=== PATIENT | female | born 1995 | race Caucasian/White ===

== ENCOUNTER 2017-02-06 08:54 | Emergency (ER) | payer BC, MEDICAID ==
[2017-02-06 09:28] VITALS: BP 120/68
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
== END 2017-02-06 10:50 | disposition home or self-care (01) ==
LOC: UCCORT 08:54
DX: M54.5 Low back pain (principal); Z88.0 Allergy status to penicillin; G43.909 Migraine, unspecified, not intractable, without status migrainosus
CPT/HCPCS: 99212; G0463

== ENCOUNTER 2017-04-12 07:20 | Emergency (ER) | payer BC ==
[2017-04-12] MEDS ORDERED: predniSONE TAB* 20 MG PO ONE (09:00)
[2017-04-12] MEDS ORDERED: Lidocaine PATCH 5%* 1 PATCH TRANSDERM SCH (09:00)
[2017-04-12] MEDS ORDERED: traMADol TAB* 50 MG PO ONE (09:00)
[2017-04-12 09:07] LABS: Manual Entry Verification AS; UR Preg Internal Control QC Line Present; UR Preg Kit Lot# 7010135
[2017-04-12 09:10] LABS: Urine Bilirubin Negative (Negative); Urine Glucose Negative (Negative); Urine Nitrite Negative (Negative)
[2017-04-12 11:13] VITALS: BP 110/59
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
[2017-04-12] MEDS ORDERED: Lidocaine Patch REMOVE* 1 NOTE MISC SCH (21:00)
== END 2017-04-12 11:12 | disposition home or self-care (01) ==
LOC: ED 07:20
DX: M51.26 Other intervertebral disc displacement, lumbar region (principal); M54.30 Sciatica, unspecified side; M54.5 Low back pain; R11.0 Nausea; R19.7 Diarrhea, unspecified
CPT/HCPCS: 81003; 81025; 99282; A9270-GY; J7512

== ENCOUNTER 2017-11-27 20:53 | Emergency (ER) | payer BC ==
[2017-11-27 21:09] VITALS: BP 141/96
[2017-11-27] MEDS ORDERED: NS 0.9% 1000 ML* 1,000 ML IV ONE (21:34)
[2017-11-27] MEDS ORDERED: Ondansetron INJ* 2 MG/ML VIAL IV ONE (21:35)
--- NOTE | 2017-11-27 21:44 | UC ---
Abdominal Pain Female HPI - HPI Summary HPI Summary: Acute onset on diffuse abd pain, nausea, vomiting diarrhea, tachycardia, near syncopal, unsure when she voided last--no recent travel antibiotics or illness exposures - History of Current Complaint Chief Complaint: UCAbdominalPain Stated Complaint: NAUSEA, AND DIARRHEA Time Seen by Provider: 11/27/17 21:25 Hx Obtained From: Patient Hx Last Menstrual Period: 11/27/17 ?: No Onset/Duration: Sudden Onset, Lasting Hours, Still Present Timing: Constant Severity Initially: Moderate Severity Currently: Moderate Pain Intensity: 0 Location: Diffuse Radiates: No Character: Cramping Aggravating Factor(s): Movement Alleviating Factor(s): Nothing Associated Signs and Symptoms: Positive: Decreased Appetite, Nausea Allergies/Adverse Reactions: Allergies Allergy/AdvReac Type Severity Reaction Status Date / Time MS Penicillins [PCN] Allergy Coughing Verified 11/27/17 21:09 Home Medications: Home Medications Loperamide HCl [Imodium A-D] 11/27/17 [History] PMH/Surg Hx/FS Hx/Imm Hx Previously Healthy: Yes - Surgical History Surgical History: Yes Surgery Procedure, Year, and Place: LAPROSCOPY ENDOMETRIOS 10/03/2015 - Family History Known Family History: Positive: Hypertension Family History: FHx of CVA - Father at 31 y/o - Social History Occupation: Employed Full-time Lives: With Family Alcohol Use: None Substance Use Type: Prescribed Substance Use Comment - Amount & Last Used: meloxicam Smoking Status (MU): Never Smoked Tobacco Have You Smoked in the Last Year: Yes - SOME EXPOSURE, MEMBER SMOKES OUTSIDE - Immunization History Most Recent Influenza Vaccination: June 2016 Most Recent Tetanus Shot: 05/27/16 Most Recent Pneumonia Vaccination: n/a Vaccination Up to Date: Yes Review of Systems Constitutional: Chills Skin: Negative Eyes: Negative ENT: Negative Respiratory: Negative Cardiovascular: Negative Gastrointestinal: Abdominal Pain, Vomiting, Diarrhea, Nausea Genitourinary: Negative, Other - decreased urine output Motor: Negative Neurovascular: Negative Musculoskeletal: Negative Neurological: Negative Psychological: Negative Is Patient Immunocompromised?: No All Other Systems Reviewed And Are Negative: Yes Physical Exam Triage Information Reviewed: Yes Appearance: Well-Nourished, Ill-Appearing, Pain Distress Vital Signs: Initial Vital Signs Temp 98.4 F 11/27/17 21:07 Pulse 140 11/27/17 21:07 Resp 20 11/27/17 21:07 BP 141/96 11/27/17 21:07 Pulse Ox 100 11/27/17 21:07 Vital Signs Reviewed: Yes Eye Exam: Normal Eyes: Positive: Conjunctiva Clear ENT Exam: Normal ENT: Positive: Normal ENT inspection, Hearing grossly normal, Pharynx normal. Negative: Nasal congestion, Nasal drainage, Trismus, Muffled voice, Hoarse voice , Dental tenderness, Sinus tenderness Dental Exam: Normal Neck exam: Normal Neck: Positive: Supple, Nontender, No Lymphadenopathy Respiratory Exam: Normal Respiratory: Positive: Chest non-tender, Lungs clear, Normal breath sounds, No respiratory distress, No accessory muscle use Cardiovascular Exam: Normal Cardiovascular: Positive: No Murmur, Pulses Normal, Brisk Capillary Refill, Tachycardia Abdominal Exam: Normal Abdomen Description: Positive: No Organomegaly, Guarding, Peritoneal Signs. Negative: CVA Tenderness (R), CVA Tenderness (L), Distended, Hernia @, Hepatomegaly, McBurney's Point Tenderness, Pulsatile Mass, Splenomegaly Bowel Sounds: Positive: Present Musculoskeletal Exam: Normal Musculoskeletal: Positive: Strength Intact, ROM Intact, No Edema Neurological Exam: Normal Neurological: Positive: Alert, Muscle Tone Normal Psychological Exam: Normal Skin Exam: Normal Abd Pain Female Course/Dx - Course Course Of Treatment: ivf, zofran, npo transfer to ed by EMS - Differential Dx/Diagnosis Provider Diagnoses: Acute nausea, vomiting and diarrhea - Physician Notification/Consults Discussed Care of Patient With: Siobhan Hendrickson Time Discussed With Above Provider: 21:35 Instructed by Provider To: Transfer Discharge - Discharge Plan Condition: Good Disposition: TRANS HIGHER LVL OF CARE FAC Referrals: No Primary Care Phys,NOPCP [Primary Care Provider] -
== END 2017-11-27 22:25 | disposition short-term general hospital (02) ==
LOC: UCEAST 20:53
DX: R11.2 Nausea with vomiting, unspecified (principal); R19.7 Diarrhea, unspecified; R10.84 Generalized abdominal pain; R00.0 Tachycardia, unspecified; R55 Syncope and collapse; Z88.0 Allergy status to penicillin; Z77.22 Contact with and (suspected) exposure to environmental tobacco smoke (acute) (chronic)
CPT/HCPCS: 96361; 96374; 99213; G0463; J2405

== ENCOUNTER 2017-11-27 22:43 | Emergency (ER) | payer BC ==
[2017-11-27] MEDS ORDERED: NS 0.9% 1000 ML* 1,000 ML IV ONE (23:06)
[2017-11-27] MEDS ORDERED: Ondansetron INJ* 2 MG/ML VIAL IV ONE (23:59)
[2017-11-28] MEDS ORDERED: Ibuprofen TAB* 800 MG PO ONE (00:20)
[2017-11-28 00:23] LABS: EGFR Non-African American 74.3 (>60)
[2017-11-28 00:26] LABS: ABS Basophils 0 10^3/ul (0-0.2); ABS Eosinophils 0 10^3/ul (0-0.6); ABS Lymphocytes 0.4 10^3/ul (1.0-4.8); ABS Monocytes 0.3 10^3/ul (0-0.8); ABS Neutrophils 9.9 10^3/ul (1.5-7.7); ABS Nucleated RBC 0 10^3/ul; Eosinophil % 0.1 % (0-6); Hematocrit 39 % (35-47); Hemoglobin 13.6 g/dl (12.0-16.0); Lymphocyte % 3.5 % (25-47); Mean Corpuscular HGB Conc 35 g/dl (31-36); Mean Corpuscular Hemoglobin 31 pg (27-31); Mean Corpuscular Volume 88 fL (80-97); Mean Platelet Volume 10 um3 (7.4-10.4); Nucleated Red Blood Cells % 0; Platelet Count 172 10^3/ul (150-450); Red Blood Count 4.46 10^6/ul (4.0-5.4); Red Cell Distribution Width 13 % (10.5-15); White Blood Count 10.6 10^3/ul (3.5-10.8)
[2017-11-28] MEDS ORDERED: Metoclopramide IV* 5 MG/ML 2 ML VIAL IV SLOW PU ONE (01:21)
[2017-11-28] MEDS ORDERED: NS 0.9% 1000 ML* 1,000 ML IV ONE (01:22)
[2017-11-28 03:43] VITALS: BP 101/45
--- NOTE | 2017-11-28 19:58 | ED ---
Earl Rodriguez Tecjoon, scribed for Oriana Lei MD on 11/28/17 at 0253 . Course/Dx - Course Course Of Treatment: Patient will be discharged with a diagnosis of gastroenteritis and a prescription for metoclopramide. Patient is advised to follow up with PCP in 3 days. - Diagnoses Provider Diagnoses: Gastroenteritis The documentation as recorded by the Earl gannon Tecjoon accurately reflects the service I personally performed and the decisions made by Do youssef Abdul, MD.
--- NOTE | 2017-11-30 08:54 | PN ---
Progress Note - Progress Note Date of Service: 11/30/17 Note: Stool culture did not grow anything significant so no further action required.
--- NOTE | 2017-12-04 19:56 | ED ---
Patricia Rodriguez Rebecca, scribed for Stefano Burrows MD on 11/27/17 at 2309 . Abdominal Pain/Female - HPI Summary HPI Summary: Pt is a 22 y/o F BIBA from [facility] who presents to ED c/o abdominal pain. Sx began suddenly today and pain is currently moderate, ranked 6/10. Pain is in the RUQ and LUQ. Sx aggravated and alleviated by nothing. Additionally c/o N/V/D , fever, and chills. Denies dysuria. Reports that nobody at home is sick and that she has not eaten any undercooked or raw food. Denies any chance of as she is currently menstruating. No recent travel. - History of Current Complaint Chief Complaint: EDAbdPain Stated Complaint: DEHYDRATION SENT FROM CC Hx Obtained From: Patient Hx Last Menstrual Period: 11/27/17 Onset/Duration: Sudden Onset, Still Present Severity Currently: Moderate Pain Intensity: 6 Pain Scale Used: 0-10 Numeric Location: Discrete At: RUQ, Discrete At: LUQ Aggravating Factor(s): Nothing Alleviating Factor(s): Nothing Associated Signs and Symptoms: Positive: Fever, Nausea, Vomiting, Diarrhea Allergies/Adverse Reactions: Allergies Allergy/AdvReac Type Severity Reaction Status Date / Time MS Penicillins [PCN] Allergy Coughing Verified 11/27/17 21:09 PMH/Surg Hx/FS Hx/Imm Hx Endocrine/Hematology History: Denies: Hx Diabetes, Hx Thyroid Disease Cardiovascular History: Denies: Hx Hypertension, Hx Pacemaker/ICD Respiratory History: Denies: Hx Asthma, Hx Chronic Obstructive Pulmonary Disease (COPD) GI History: Denies: Hx Ulcer History: Denies: Hx Renal Disease Musculoskeletal History: Reports: Hx Back Problems - disc herniation Sensory History: Denies: Hx Hearing Aid Neurological History: Reports: Hx Migraine Psychiatric History: Denies: Hx Panic Disorder - Surgical History Surgery Procedure, Year, and Place: LAPROSCOPY ENDOMETRIOS 10/03/2015 Infectious Disease History: No Infectious Disease History: Denies: Hx Clostridium Difficile, Hx Hepatitis, Hx Human Immunodeficiency Virus (HIV), Hx of Known/Suspected MRSA, Hx Shingles, Hx Tuberculosis, Hx Known/ Suspected VRE, Hx Known/Suspected VRSA, History Other Infectious Disease, Traveled Outside the [place] in Last 30 Days - Family History Known Family History: Positive: Hypertension Family History: FHx of CVA - Father at 31 y/o - Social History Alcohol Use: Rare Hx Substance Use: Yes Substance Use Type: Reports: None Substance Use Comment - Amount & Last Used: meloxicam Hx Tobacco Use: No Smoking Status (MU): Never Smoked Tobacco Have You Smoked in the Last Year: Yes - SOME EXPOSURE, MEMBER SMOKES OUTSIDE Review of Systems Positive: Fever, Chills Positive: Abdominal Pain, Vomiting, Diarrhea, Nausea Negative: dysuria All Other Systems Reviewed And Are Negative: Yes Physical Exam - Summary Physical Exam Summary: Appearance: Well-appearing, Well-nourished Skin: Warm, Dry, No rash Eyes: Normal, PERRL, EOMI, sclera anicteric ENT: Normal Neck: Supple, nontender Respiratory: Clear to auscultation Cardiovascular: S1, S2, no murmur, no rub, no gallop Abdomen: Soft, nontender, no organomegaly Bowel sounds: Present Musculoskeletal: Normal, Strength/ROM Intact, no edema, pulses symmetrical Neurological: Normal, A&Ox3, cranial nerves II-XII WNL, follows commands, gait not tested, sensation intact to pin and light touch Psychiatric: affect normal, behavior appropriate, dressed appropriately, judgment intact Triage Information Reviewed: Yes Vital Signs On Initial Exam: Initial Vitals Temp Pulse Resp BP Pulse Ox 99.2 F 97 16 114/55 99 11/27/17 22:53 11/27/17 22:53 11/27/17 22:53 11/27/17 22:53 11/27/17 22:53 Vital Signs Reviewed: Yes Diagnostics - Vital Signs Vital Signs Temp Pulse Resp BP Pulse Ox 11/27/17 22:57 95 99 11/27/17 22:55 114/55 11/27/17 22:53 99.2 F 97 16 114/55 99 - Laboratory Lab Statement: Any lab studies that have been ordered have been reviewed, and results considered in the medical decision making process. Abdominal Pain Fem Course/Dx - Course Course Of Treatment: Pt is a 22 y/o F BIBA from [facility] who presents to ED c/o abdominal pain. Sx began suddenly today and pain is currently moderate, ranked 6 /10. Pain is in the RUQ and LUQ. Sx aggravated and alleviated by nothing. Additionally c/o N/V/D, fever, and chills. Denies dysuria. Reports that nobody at home is sick and that she has not eaten any undercooked or raw food. Denies any chance of as she is currently menstruating. No recent travel. Pt will be signed out to Dr. Lei, pending disposition, awaiting workup. - Diagnoses Provider Diagnoses: Gastroenteritis Discharge - Discharge Plan Condition: Good Disposition: OTHER Discharge Disposition Comment: Pt will be signed out to Dr. Lei, pending disposition, awaiting workup. Referrals: No Primary Care Phys,NOPCP [Primary Care Provider] - The documentation as recorded by the Patricia gannon Rebecca accurately reflects the service I personally performed and the decisions made by me, Stefano Burrows MD.
== END 2017-11-28 03:46 ==
LOC: ED 22:43
DX: K52.9 Noninfective gastroenteritis and colitis, unspecified (principal); Z88.0 Allergy status to penicillin
CPT/HCPCS: 36415; 80053; 85025; 87045; 87046; 87077; 87899; 96361; 96374; 96375; 99283; A9270-GY; J2405; J2765

== ENCOUNTER 2018-12-08 11:29 | Inpatient (IN) | payer BC ==
[2018-12-08] MEDS ORDERED: Lactated Ringers 1000 ML Bag* 1,000 ML IV ONE ×2 (12:40→19:18)
[2018-12-08] MEDS ORDERED: Buffered Lidocaine 1% SYRIN* 1 ML/SYRINGE INTRADERM ONE (12:40)
[2018-12-08] MEDS ORDERED: ceFAZolin 2 GM PREMIX in ORs 2 GM/50 ML BAG IVPB ONE (12:41)
[2018-12-08] MEDS ORDERED: Lactated Ringers 1000 ML Bag* 1,000 ML IV SCH ×3 (13:00→23:45)
[2018-12-08 13:44] LABS: ABS Basophils 0 10^3/ul (0-0.2); ABS Eosinophils 0.1 10^3/ul (0-0.6); ABS Lymphocytes 1.3 10^3/ul (1.0-4.8); ABS Monocytes 0.4 10^3/ul (0-0.8); ABS Neutrophils 4.4 10^3/ul (1.5-7.7); ABS Nucleated RBC 0 10^3/ul; Eosinophil % 0.8 %; Hematocrit 32 % (35-47); Hemoglobin 10.7 g/dl (12.0-16.0); Lymphocyte % 20.8 %; Mean Corpuscular HGB Conc 33 g/dl (31-36); Mean Corpuscular Hemoglobin 27 pg (27-31); Mean Corpuscular Volume 82 fL (80-97); Mean Platelet Volume 9.4 fL (7.4-10.4); Nucleated Red Blood Cells % 0.1; Platelet Count 142 10^3/ul (150-450); Red Blood Count 3.96 10^6/ul (4.00-5.40); Red Cell Distribution Width 15 % (10.5-15); White Blood Count 6.1 10^3/ul (3.5-10.8)
[2018-12-08] MEDS ORDERED: Oxytocin 20 UNITS in LR* LOW DOSE 1000 ml IVPB SCH (14:00)
[2018-12-08] MEDS ORDERED: Acetaminophen TAB* 325 MG PO ONE (14:25)
--- NOTE | 2018-12-08 15:00 | HP ---
General Information - Reason for Visit at 39 w for elective induction due to pelvic discomfort, pruritis - General Information Maternal Age: 23 Grav: 4 Para: 1 SAB: 1 IEA: 1 Estimated Due Date: 12/15/18 Determined By: Early Ultrasound Gestational Age in Weeks/Days: 39 w 0d Maternal Blood Type and Rh: A Positive - Results this Serology/RPR Result: Non-Reactive Rubella Result: Immune HBsAg Result: Negative HIV Result: Negative GBS Culture Result: Positive Past Medical History Delivery History: Hx Uncomplicated Vaginal Delivery Past Medical History Comment: degenerative disc disease migraine Past Surgical History Comment: laparoscopy for endometriosis 09/2015 and 08/2017 Family History Comment: F: HTN - Antepartal Records Antepartal Records: Reviewed, Complicated by: - pruritis Review of Systems Constitutional: Comfortable CV Complaint: No Respiratory: Shortness of Breath: No Gastrointestinal: No Nausea/Vomiting, Soft Stool Genitourinary: No Leaking Fluid Musculoskeletal: Back Pain Neurological: Headache Movement: Normal Exam Allergies/Adverse Reactions: Allergies Penicillins Allergy (Severe, Verified 12/08/18 12:49) Difficulty Breathing Lab Values - Entire Visit: Laboratory Tests 12/08/18 12/08/18 13:12 13:12 WBC 6.1 RBC 3.96 L Hgb 10.7 L Hct 32 L MCV 82 MCH 27 MCHC 33 RDW 15 Plt Count 142 L MPV 9.4 Neut % (Auto) 72.1 Lymph % (Auto) 20.8 Screven % (Auto) 6.0 Eos % (Auto) 0.8 Baso % (Auto) 0.3 Absolute Neuts (auto) 4.4 Absolute Lymphs (auto) 1.3 Absolute Monos (auto) 0.4 Absolute Eos (auto) 0.1 Absolute Basos (auto) 0 Absolute Nucleated RBC 0 Nucleated RBC % 0.1 Blood Type A Positive Antibody Screen Negative - Measurements Height: 5 ft 5 in Weight: 168 lb Weight in lbs: [id number] Body Mass Index (BMI): 27.9 Pre- Weight: 144 lb Weight Gained This : 24 lbs and 0 ozs - Exam Breast: - - soft, no masses Extremities: No Edema Heart: Normal Rhythm/Heart Sounds HEENT: No Significant Findings Lungs: Clear Bilaterally Reflexes: DTR 2+ Thyroid: No Thyromegaly - Abdominal Exam Abdomen Exam: Non-Tender - Ultrasound/Biophysical Profile Ultrasound Status: Not Done Targeted Exam Findings Estimated Weight: 7 lbs Cervical Exam: 2cm Effacement: 80% Station: -1 Presenting Part: Vertex Membrane Status: Intact Bleeding/Discharge: None EFM Findings - External Monitor Findings Baseline Heart Rate: 120 External Monitor Findings: Accelerations Present, No Pattern of Variable or Late Decelerations, Variability Moderate External Monitor Findings Comment: category 1 Contractions: Irregular, Mild Assessment/Plan - Assessment at 39 wks for elective induction - Obstetrical Risk Factors Obstetrical Risk Factors: GBS Positive - Plan Plan: Induction, Admit - Anticipate Vaginal Delivery - Date/Time of Admission Date of Admission: 12/08/18 Time of Admission: 14:30
--- NOTE | 2018-12-08 17:14 | PN ---
Progress Note - Progress Note Date of Service: 12/08/18 Note: Starting to feel contractions every 2-3 min Cervix: 3-4 cm, 80%, vtx -s AROM, clear fluid Will continue pitocin. Wants epidural when more uncomfortable
[2018-12-08] MEDS ORDERED: OBEPIDURAL* 250 ML EPIDURAL ONE (18:23)
[2018-12-08] MEDS ORDERED: Lidocaine 1.5% EPI 1:200,000* 30 ML SDV ONE (18:52)
[2018-12-08] MEDS ORDERED: Famotidine TAB* 20 MG PO PRN (19:18)
[2018-12-08] MEDS ORDERED: Phenylephrine IV* 40 MCG/ML 10 ML SYRINGE IV PUSH PRN (19:18)
[2018-12-08] MEDS ORDERED: Sodium Citrate/Citric Acid* 15 ML UDC PO PRN (19:18)
[2018-12-08] MEDS ORDERED: Chloroprocaine 2%* 20 ML VIAL ONE (19:49)
[2018-12-08] MEDS ORDERED: OBEPIDURAL* 250 ML EPIDURAL SCH (20:00)
--- NOTE | 2018-12-08 20:22 | PN ---
Progress Note - Progress Note Date of Service: 12/08/18 Note: Epidural with some relief, somewhat one sided. Cervix: 5-6cm, 90%, vtx -1 BP, FHTs stable Dr. Mcneil contacted, she will evaluate epidural
[2018-12-08] MEDS ORDERED: Calcium Carbonate CHEW TAB* 500 MG (TUMS) PO PRN (20:31)
[2018-12-08] MEDS ORDERED: Calcium Carbonate CHEW TAB* 500 MG (TUMS) ONE (20:54)
[2018-12-08] MEDS ORDERED: ceFAZolin 1 GM ADVAN(*) 1 GM in NS 0.9% 50 ML* 50 ML IVPB SCH (21:00)
[2018-12-08] MEDS ORDERED: Oxytocin in LR* 20 UNITS/1,000 ML BAG IVPB SCH (23:45)
[2018-12-08] MEDS ORDERED: Witch Hazel PAD* JAR TOPICAL PRN (23:45)
[2018-12-08] MEDS ORDERED: Glycerin ADULT SUPP PR PRN (23:45)
[2018-12-08] MEDS ORDERED: Dibucaine 1% 28.35 GM TUBE PR PRN (23:45)
--- NOTE | 2018-12-08 23:54 | PROCNOTE ---
[facility] OB: Delivery Note - Delivery A Date of : 12/08/18 Time of : 23:26 [place] Sex: Male Score 1 Minute: 9 Score 5 Minutes: 9 Gestational Age in Weeks and Days at Delivery: 39 Weeks and 0 Days Delivery Method: Spontaneous Vaginal Labor: Induced - elective Did Patient attempt ?: N/A, No Previous Amniotic Fluid: Clear Estimated Blood Loss: 200 Anesthesia/Analgesia: CEI for Labor Anesthesia Comment: Dr. Mcneil Delivered By: Charlotte Ramos - Nursery Level of Nursery: Regular/Bedside - Perineum Perineal Injury: None/Intact - Events Delivery Events of Note: Pitocin During Labor, Full Course of Antibiotics - Additional Delivery Notes Additional Delivery Notes: SVB LMC, OA, over intact perineum. To maternal abd. pink with stimulation. cord milked. Placenta Dex, calcified. FF with massage, IV with pitocin running. EBL 200 cc. Mother and baby in good condition, attempted
[2018-12-09 07:02] LABS: Hematocrit 28 % (35-47); Hemoglobin 9.4 g/dl (12.0-16.0); Mean Corpuscular HGB Conc 34 g/dl (31-36); Mean Corpuscular Hemoglobin 28 pg (27-31); Mean Corpuscular Volume 81 fL (80-97); Platelet Count 122 10^3/ul (150-450); Red Cell Distribution Width 14 % (10.5-15); White Blood Count 10.9 10^3/ul (3.5-10.8)
[2018-12-09] MEDS: Ferrous Gluconate TAB* 324 MG TAB PO SCH ×2 (08:32→21:14)
[2018-12-09] MEDS: Docusate CAP* 100 MG PO SCH ×3 (08:32→21:14)
[2018-12-09] MEDS: Ibuprofen TAB* 600 MG PO PRN ×2 (12:16→20:10)
[2018-12-09] MEDS: Acetaminophen TAB* 325 MG PO PRN ×2 (15:36→20:09)
[2018-12-10] MEDS: Acetaminophen TAB* 325 MG PO PRN (05:03)
[2018-12-10] MEDS: Ibuprofen TAB* 600 MG PO PRN ×3 (05:03→17:21)
[2018-12-10] MEDS: Docusate CAP* 100 MG PO SCH ×2 (08:25→14:00)
[2018-12-10] MEDS: Ferrous Gluconate TAB* 324 MG TAB PO SCH (08:25)
[2018-12-10 16:52] VITALS: BP 113/67
== END 2018-12-10 18:21 | disposition home or self-care (01) | DRG 560 ==
LOC: MCHOBOUT 11:29 → MCHOB 14:24
PROVIDERS: ADMIT Midwife; ATTEND Midwife
PROC: 10E0XZZ Delivery of Products of Conception, External Approach (ICD-10-PCS; principal; 2018-12-08)
PROC: 3E033VJ Introduction of Other Hormone into Peripheral Vein, Percutaneous Approach (ICD-10-PCS; 2018-12-08)
PROC: 10907ZC Drainage of Amniotic Fluid, Therapeutic from Products of Conception, Via Natural or Artificial Opening (ICD-10-PCS; 2018-12-08)
DX: O99.824 Streptococcus B carrier state complicating childbirth (principal); Z37.0 Single live birth; O26.893 Other specified pregnancy related conditions, third trimester; L29.9 Pruritus, unspecified; O90.81 Anemia of the puerperium; D64.9 Anemia, unspecified; Z3A.39 39 weeks gestation of pregnancy
CPT/HCPCS: 36415; 85025; 85027; 86850; 86900; 86901; A9270-GY; J0690; J2400

== ENCOUNTER 2019-06-22 09:16 | Emergency (ER) | payer BC ==
[2019-06-22 09:27] VITALS: BP 107/64
--- NOTE | 2019-06-22 10:00 | UC ---
UC General HPI - HPI Summary HPI Summary: 24-year-old woman comes in with chief complaint of back pain headache chills and feeling ill. It's all started overnight. The worst pain is in her thoracic spine. She reports her urine deleon. No other symptoms of UTI. She does feel lightheaded. She's taken acetaminophen and ibuprofen with minimal relief. - History of Current Complaint Chief Complaint: UCBackPain Stated Complaint: BACK PAIN BODYACHES HEADACHE DIZZY Time Seen by Provider: 06/22/19 09:51 Hx Last Menstrual Period: 06/22/19 Pain Intensity: 8 - Allergy/Home Medications Allergies/Adverse Reactions: Allergies Allergy/AdvReac Type Severity Reaction Status Date / Time Penicillins Allergy Severe Difficulty Verified 06/22/19 09:27 Breathing Home Medications: Home Medications Acetaminophen [Mapap] 1,000 mg PO ONCE PRN 06/22/19 [History Confirmed 06/22/19] Meloxicam 50 mg PO DAILY 06/22/19 [History Confirmed 06/22/19] Norethindrone bag PO DAILY 06/22/19 [History] PMH/Surg Hx/FS Hx/Imm Hx Previously Healthy: Yes - CONNECTIVE TISSUE D/O - Surgical History Surgical History: Yes Surgery Procedure, Year, and Place: LAPROSCOPY ENDOMETROSIS 10/03/2015;. LAPROSCOPY ECTOPIC 2016; - Family History Known Family History: Positive: Hypertension Family History: FHx of CVA - Father at 31 y/o - Social History Alcohol Use: None Substance Use Type: None Substance Use Comment - Amount & Last Used: meloxicam Smoking Status (MU): Never Smoked Tobacco Have You Smoked in the Last Year: Yes - SOME EXPOSURE, HOUSE MEMBER SMOKES OUTSIDE - Immunization History Most Recent Influenza Vaccination: 08/15/18 Most Recent Tetanus Shot: 05/27/16 Most Recent Pneumonia Vaccination: n/a Vaccination Up to Date: Yes Review of Systems All Other Systems Reviewed And Are Negative: Yes Constitutional: Positive: Chills, Other - SEE HPI Skin: Positive: Negative Eyes: Positive: Photophobia ENT: Positive: Negative Respiratory: Positive: Negative Cardiovascular: Positive: Other - SEE HPI Gastrointestinal: Positive: Negative Genitourinary: Positive: Other - SEE HPI Motor: Positive: Negative Neurovascular: Positive: Negative Musculoskeletal: Positive: Other: - SEE HPI Neurological: Positive: Headache Psychological: Positive: Negative Is Patient Immunocompromised?: No Physical Exam Triage Information Reviewed: Yes Appearance: Well-Nourished, Ill-Appearing - MILD, Pain Distress - MILD Vital Signs: Initial Vital Signs Temp 100.5 F 06/22/19 09:22 Pulse 120 06/22/19 09:22 Resp 22 06/22/19 09:22 BP 107/64 06/22/19 09:22 Pulse Ox 100 06/22/19 09:22 Vital Signs Reviewed: Yes Eyes: Positive: Conjunctiva Clear, Other: - PERRLA EOMI positive mild photophobia. ENT: Positive: Pharynx normal, TMs normal Neck: Positive: Other: - Neck is supple however she does complain of some pain with range of motion. Respiratory: Positive: Lungs clear, Normal breath sounds, No respiratory distress Cardiovascular: Positive: Tachycardia Abdomen Description: Positive: Nontender, CVA Tenderness (R) Musculoskeletal: Positive: Strength Intact, ROM Intact Neurological: Positive: Alert, Muscle Tone Normal Psychological: Positive: Age Appropriate Behavior Skin Exam: Normal Course/Dx - Course Course Of Treatment: Patient's constellation of symptoms indicate that she does have an infectious source. Here in clinic because do not have real-time labs or the ability to do a spinal tap if necessary and I recommended further evaluation emergency Department patient preferred to go by POV. - Diagnoses Provider Diagnosis: Fever, Back pain Discharge ED - Sign-Out/Discharge Documenting (check all that apply): Patient Departure All imaging exams completed and their final reports reviewed: No Studies - Discharge Plan Condition: Stable Disposition: HOME-RECOMMEND TO ED Referrals: Tommie Marie MD [Primary Care Provider] - Additional Instructions: GO DIRECTLY TO THE EMERGENCY DEPARTMENT FOR FURTHER EVALUATION OF YOUR FEVER AND BACK PAIN. - Billing Disposition and Condition Condition: STABLE Disposition: Home-Recommend to ED
== END 2019-06-22 10:07 | disposition home health service (06) ==
LOC: UCEAST 09:16
DX: M54.5 Low back pain (principal); R50.9 Fever, unspecified; Z88.0 Allergy status to penicillin
CPT/HCPCS: 99212; G0463

== ENCOUNTER 2019-06-22 10:23 | Emergency (ER) | payer BC ==
--- NOTE | 2019-06-22 10:55 | ED ---
HPI Febrile Illness - HPI Summary HPI Summary: 24 year old F presenting to [facility] with a chief complaint of febrile illness since yesterday 06/21/19. The patient rates the pain 8/10 in severity. Symptoms aggravated by deep inhalation, coughing, sneezing, movement of her right leg, and laying down on her back (specifically worsens sharp pain in the right sternum). Symptoms alleviated by bending over and patient slightly lifting her arms. Patient reports pain from her thoracic spine down to the middle of her back, radiating around her body and to her chest, also shooting pain down her arms and legs. Patient reports that this pain is abnormal, despite having a hx of herniated disc in her lower spine and two bulging discs in her neck. Patient denies symptoms of coughing or congestion. - History of Current Complaint Chief Complaint: EDFever Time Seen by Provider: 06/22/19 10:30 Hx Obtained From: Patient Hx Last Menstrual Period: 06/22/19 Onset/Duration: Started Days Ago - Onset yesterday 06/21/19, Still Present Timing: Lasting Days Temperature: 100.2 F - per triage but she notes fever at home Current Severity: Severe Pain Intensity: 8 Pain Scale Used: 0-10 Numeric Aggravating Factors: Other: - inhalation, coughing, sneezing, laying down on back Alleviating Factors: Other: - bending over and raising arms slightly Associated Signs and Symptoms: Negative - patient denies cough, congestion, and urinary symptoms - Allergy/Home Medications Allergies/Adverse Reactions: Allergies Allergy/AdvReac Type Severity Reaction Status Date / Time Penicillins Allergy Severe Difficulty Verified 06/22/19 10:51 Breathing Home Medications: Home Medications Norethindrone 1 tab PO DAILY 06/22/19 [History Confirmed 06/22/19] PMH/Surg Hx/FS Hx/Imm Hx Endocrine/Hematology History: Denies: Hx Diabetes, Hx Thyroid Disease Cardiovascular History: Denies: Hx Hypertension, Hx Pacemaker/ICD Respiratory History: Denies: Hx Asthma, Hx Chronic Obstructive Pulmonary Disease (COPD) GI History: Denies: Hx Ulcer History: Denies: Hx Dialysis, Hx Renal Disease - HX ELEVATED CREATINE RELATED TO CONNECTIVE TISSUE DISEASE Musculoskeletal History: Reports: Hx Back Problems - disc herniation Sensory History: Denies: Hx Hearing Aid Neurological History: Reports: Hx Migraine Psychiatric History: Denies: Hx Panic Disorder - Cancer History Cancer Type, 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 LAPROSCOPY ECTOPIC 2017; Infectious Disease History: No Infectious Disease History: Denies: Hx Clostridium Difficile, Hx Hepatitis, Hx Human Immunodeficiency Virus (HIV), Hx of Known/Suspected MRSA, Hx Shingles, Hx Tuberculosis, Hx Known/ Suspected VRE, Hx Known/Suspected VRSA, History Other Infectious Disease, Traveled Outside the [place] in Last 30 Days - Family History Known Family History: Positive: Hypertension Family History: FHx of CVA - Father at 31 y/o - Social History Alcohol Use: None Hx Substance Use: Yes Substance Use Type: Reports: None Substance Use Comment - Amount & Last Used: meloxicam Hx Tobacco Use: No Smoking Status (MU): Never Smoked Tobacco Have You Smoked in the Last Year: Yes - 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 Negative: Cough Positive: Other - pain in the thoracicc part of her pack down to the middle lower back. Radiates to the chest and down her arms and legs. All Other Systems Reviewed And Are Negative: Yes Physical Exam - Summary Physical Exam Summary: Appearance: The patient is well-nourished Skin: The skin is warm and dry, and skin color reflects adequate perfusion. HEENT: The head is normocephalic and atraumatic. The pupils are equal and reactive. The conjunctivae are clear and without drainage. Nares are patent and without drainage. Mouth reveals moist mucous membranes, and the throat is without erythema and exudate. The external ears are intact. The ear canals are patent and without drainage. The tympanic membranes are intact. Neck: The neck is supple with full range of motion and non-tender. There are no carotid bruits. There is no neck vein distension. There are no meningeal signs. Respiratory: Tenderness over sternum on the right side. Lungs are clear to auscultation and breath sounds are symmetrical and equal. Cardiovascular: Tachycardic. There is no murmur or rub auscultated. There is no peripheral edema and pulses are symmetrical and equal. Abdomen: The abdomen is soft and non-tender. There are normal bowel sounds heard in all four quadrants and there is no organomegaly palpated. Musculoskeletal: Tenderness in right rhomboid area. Extremities are non-tender with full range of motion. There is good capillary refill. There is no peripheral edema or calf tenderness elicited. Neurological: Patient is alert and oriented to person, place and time. The patient has symmetrical motor strength in all four extremities. Cranial nerves are grossly intact. Deep tendon reflexes are symmetrical and equal in all four extremities. Psychiatric: The patient has an appropriate affect and does not exhibit any anxiety or depression. Triage Information Reviewed: Yes Vital Signs On Initial Exam: Initial Vitals Temp Pulse Resp BP Pulse Ox 100.2 F 151 18 161/89 99 06/22/19 10:26 06/22/19 10:26 06/22/19 10:26 06/22/19 10:26 06/22/19 10:26 Vital Signs Reviewed: Yes Procedures - Lumbar Puncture Lumbar Paraspinals Procedural Sedation: no sedation, patient awake Position: Sitting Aseptic Technique: Lidocaine Spinal Needle Used: 22 Gauge Lumbar Puncture Note: opening pressure was 37cm. 5cc's clear, fluid obtained on the first pass Diagnostics - Vital Signs Vital Signs Temp Pulse Resp BP Pulse Ox 06/22/19 10:26 100.2 F 151 18 161/89 99 - Laboratory Result Diagrams: 06/22/19 10:56 06/22/19 10:56 Lab Statement: Any lab studies that have been ordered have been reviewed, and results considered in the medical decision making process. - Radiology CXR Radiology Interpretation Completed By: Radiologist Summary of Radiographic Findings: Impression: no active cardiopulmonary disease is noted. The ED physician has reviewed this report. Re-Evaluation - Re-Evaluation First Eval Re-Evaluation Time: 12:20 Comment: We discussed CXR results. We also spoke about my recommendation for a LP. Course/Dx - Course Course Of Treatment: Ms. Owens presented with fevers, headache and right pleuritic chest pain with multiple pains in her back and extremities. She has a history of back pain but this is different. On exam she was nontoxic in appearance, tachycardic and febrile. She didn't have any meningeal signs. She did have some rhomboid spasm on the right with tenderness. Labs are obtained and are white blood cell count was on the low side as were platelets. I had concern for viral or perhaps tick born illness. I performed an LP which was negative. After couple liters of fluid and treatment of her fever her heart rate was back down to about 100 and she was feeling much improved. This is likely a viral infection. She is not an IV drug user and has very little risk for an epidural abscess. - Diagnoses Provider Diagnoses: Febrile illness, acute - Provider Notifications Discussed Care Of Patient With: Klever Emersondeniseve Time Discussed With Above Provider: 14:50 Instructed by Provider To: Other - Discussed patient care with Dr. Rashid, Neurosurgeon, who agreed to see patient. Discharge ED - Sign-Out/Discharge Documenting (check all that apply): Patient Departure - home Patient Received Moderate/Deep Sedation with Procedure: No - Discharge Plan Condition: Stable Disposition: HOME Patient Education Materials: Fever in Adults (ED) Forms: *Work Release Referrals: Tommie Marie MD [Primary Care Provider] - 3 Days Additional Instructions: Please follow up with your provider within the next three days. Please return to the emergency department for new or worsening symptoms. - Billing Disposition and Condition Condition: STABLE Disposition: Home - Attestation Statements Document Initiated by Paigeibe: Yes Documenting Scribe: Maliha Will Provider For Whom Jagdeep is Documenting (Include Credential): Jose Luis Bobo MD Scribe Attestation: Maliha Rodriguez, scribed for Jose Luis Bobo MD on at 2045. Scribe Documentation Reviewed: Yes Provider Attestation: The documentation as recorded by the jagdeep, Maliha Will accurately reflects the service I personally performed and the decisions made by me, Jose Luis Bobo MD Status of Scribe Document: Viewed
[2019-06-22] MEDS: NS 0.9% 1000 ML** 1,000 ML IV.FLUID IV ONE (11:03)
[2019-06-22 11:10] LABS: ABS Lymphocytes 0.4 10^3/ul (1.0-4.8); ABS Monocytes 0.5 10^3/ul (0-0.8); ABS Neutrophils 4.8 10^3/ul (1.5-7.7); Hematocrit 40 % (35-47); Hemoglobin 14.1 g/dL (12.0-16.0); Lymphocyte % 6.3 %; Mean Corpuscular HGB Conc 35 g/dL (31-36); Mean Corpuscular Hemoglobin 30 pg (27-31); Mean Corpuscular Volume 87 fL (80-97); Platelet Count 140 10^3/uL (150-450); Red Blood Count 4.65 10^6 /uL (3.70-4.87); Red Cell Distribution Width 13 % (10-15); White Blood Count 5.6 10^3/uL (3.5-10.8)
[2019-06-22 11:23] LABS: INR 1.06 (0.82-1.09)
[2019-06-22 11:23] LABS: Urine Appearance Clear; Urine Bilirubin Negative (Negative); Urine Blood Negative (Negative); Urine Color Yellow; Urine Glucose Negative (Negative); Urine Ketones Negative (Negative); Urine Nitrite Negative (Negative); Urine Protein Negative (Negative); Urine Specific Gravity 1.012 (1.010-1.030); Urine Urobilinogen Negative (Negative)
[2019-06-22] MEDS: Acetaminophen TAB* 325 MG PO ONE (11:34)
[2019-06-22 11:42] LABS: Albumin 4.8 g/dL (3.2-5.2); Albumin/Globulin Ratio 1.5 (1-3); BUN/Creatinine Ratio 6.9 (8-20); C Reactive Protein 31.29 mg/L (<8.01); Calcium 9.2 mg/dL (8.6-10.3); EGFR African American 97.6 (>60); EGFR Non-African American 80.7 (>60); Globulin 3.1 g/dL (2-4); Potassium 3.7 mmol/L (3.5-5.0); Total Bilirubin 0.7 mg/dL (0.2-1.0); Total Protein 7.9 g/dL (6.4-8.9)
[2019-06-22] MEDS: Ketorolac INJ* 30 MG/ML 1 ML VIAL IV PUSH ONE (12:36)
[2019-06-22] MEDS: Ondansetron INJ* 2 MG/ML VIAL IV ONE (13:53)
[2019-06-22 14:18] LABS: Body Fluid Source Cerebral Spinal
[2019-06-22 14:31] LABS: CSF Glucose 65 mg/dL (40-70)
[2019-06-22 15:39] VITALS: BP 138/70
[2019-06-23 19:30] LABS: HSV 1 PCR, CSF Negative (Negative); HSV 2 PCR, CSF Negative (Negative)
[2019-06-25 21:02] LABS: Anaplasma phagocytophilum Negative (Negative); B. miyamotoi PCR, B Negative (Negative); Babesia divergens/MO-1 Negative (Negative); Babesia ducani Negative (Negative); Ehrlichia chaffeensis Negative (Negative); Ehrlichia ewingii/canis Negative (Negative); Ehrlichia muris eauclairensis Negative (Negative)
== END 2019-06-22 15:38 | disposition home or self-care (01) ==
LOC: ED 10:23
DX: R50.9 Fever, unspecified (principal); Z79.899 Other long term (current) drug therapy; Z88.0 Allergy status to penicillin
CPT/HCPCS: 36415; 62270; 71045; 80053; 81003; 82945; 83605; 84157; 84484; 85025; 85379; 85610; 86140; 86618; 87040; 87070; 87205; 87529; 87798; 89051; 96361; 96374; 96375; 99284; A9270-GY; J1885; J2405

== ENCOUNTER 2019-06-23 13:14 | Day surgery (SDC) | payer BC ==
--- NOTE | 2019-06-23 13:29 | ED ---
Headache - HPI Summary HPI Summary: This patient is a 24 year old female presenting to [facility] with a chief complaint of headache. The patient states she had a spinal tap yesterday and now has a bad HERNANDEZ that will not be relieved by laying down. She had the headache before she had the LP but was able to relieve it by laying down. She came in yesterday with tachycardia and fever as well. She reports back pain. She states the pain is frontal. She states her pain was worse after the lumbar puncture. She rates her pain 10/10 in severity. 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 She denies numbness/tingling. She reports constipation secondary to the back pain. - History Of Current Complaint Chief Complaint: EDHeadache Stated Complaint: SEVERE HEADACHE PER PT Time Seen by Provider: 06/23/19 13:23 Hx Obtained From: Patient Hx Last Menstrual Period: 06/22/19 Location of Headache: Frontal - Allergies/Home Medications Allergies/Adverse Reactions: Allergies Allergy/AdvReac Type Severity Reaction Status Date / Time Penicillins Allergy Severe Difficulty Verified 06/23/19 13:15 Breathing Home Medications: Home Medications Acetaminophen [Acetaminophen Extra Strength] 1,000 mg PO DAILY PRN 06/23/19 [ History Confirmed 06/23/19] Meloxicam(NF) [Mobic(NF)] 7.5 mg PO DAILY 06/23/19 [History Confirmed 06/23/19] Norethindrone [Bianca-Be] 0.35 mg PO DAILY 06/23/19 [History Confirmed 06/23/19] PMH/Surg Hx/FS Hx/Imm Hx Endocrine/Hematology History: Denies: Hx Diabetes, Hx Thyroid Disease Cardiovascular History: Denies: Hx Hypertension, Hx Pacemaker/ICD Respiratory History: Denies: Hx Asthma, Hx Chronic Obstructive Pulmonary Disease (COPD) GI History: Denies: Hx Ulcer History: Denies: Hx Dialysis, Hx Renal Disease - HX ELEVATED CREATINE RELATED TO CONNECTIVE TISSUE DISEASE Musculoskeletal History: Reports: Hx Back Problems - disc herniation Sensory History: Denies: Hx Hearing Aid Neurological History: Reports: Hx Migraine Psychiatric History: Denies: Hx Panic Disorder - Cancer History Cancer Type, 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 LAPROSCOPY ECTOPIC 2017; Infectious Disease History: No Infectious Disease History: Denies: Hx Clostridium Difficile, Hx Hepatitis, Hx Human Immunodeficiency Virus (HIV), Hx of Known/Suspected MRSA, Hx Shingles, Hx Tuberculosis, Hx Known/ Suspected VRE, Hx Known/Suspected VRSA, History Other Infectious Disease, Traveled Outside the [place] in Last 30 Days - Family History Known Family History: Positive: Hypertension Family History: FHx of CVA - Father at 31 y/o - Social History Alcohol Use: None Hx Substance Use: Yes Substance Use Type: Reports: None Substance Use Comment - Amount & Last Used: meloxicam Hx Tobacco Use: No Smoking Status (MU): Never Smoked Tobacco Have You Smoked in the Last Year: Yes - 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 Negative: Paresthesia, Numbness All Other Systems Reviewed And Are Negative: Yes Physical Exam - Summary Physical Exam Summary: Constitutional: Well-developed, Well-nourished, Alert. Patient laying in bed in tears. Skin: Warm, Dry HENT: Normocephalic; Atraumatic Eyes: Conjunctiva normal Neck: Musculoskeletal ROM normal neck. (-) JVD, (-) Stridor, (-) Tracheal deviation Cardio: Rhythm regular, rate normal, Heart sounds normal; Intact distal pulses; The pedal pulses are 2+ and symmetric. Radial pulses are 2+ and symmetric. (-) Murmur Pulmonary/Chest wall: Effort normal. (-) Respiratory distress, (-) Wheezes, (-) Rales Abd: Soft. (-) Tenderness, (-) Distension, (-) Guarding, (-) Rebound Musculoskeletal: (-) Edema Lymph: (-) Cervical adenopathy Neuro: Alert, Oriented x3, Strength normal, Cranial nerves II-XII are grossly intact. (-) Dysmetria, (-) Nystagmus, (-) Ataxia by finger to nose testing, (-) Sensory deficit. Psych: Mood and affect Normal Triage Information Reviewed: Yes Vital Signs On Initial Exam: Initial Vitals Temp Pulse Resp BP Pulse Ox 98.4 F 150 20 149/98 99 06/23/19 13:15 06/23/19 13:15 06/23/19 13:15 06/23/19 13:15 06/23/19 13:15 Vital Signs Reviewed: Yes Diagnostics - Vital Signs Vital Signs Temp Pulse Resp BP Pulse Ox 06/23/19 13:15 98.4 F 150 20 149/98 99 - Laboratory Lab Statement: Any lab studies that have been ordered have been reviewed, and results considered in the medical decision making process. - CT Brain CT Interpretation Completed By: Radiologist Summary of CT Findings: No acute intracranial pathology is noted. ED Provider has reviewed this report. Re-Evaluation - Re-Evaluation First Eval Re-Evaluation Time: 13:43 Comment: Spoke to Dr Mayers, wants to delay blood patches. Will try caffeine. Headache Course/Dx - Course Course Of Treatment: She is here with a worsening headache after having an LP yesterday. Patient was evaluated for meningitis with negative workup here. Patient's headache was positional but is now constant. Patient was offered symptomatically treatment with follow-up for possible blood patch if worsened symptoms but declined and wanted an immediate blood patch today. Anesthesia was called and performed a blood patch. Patient had some symptom relief per anesthesia. Patient was discharged. - Diagnoses Provider Diagnoses: Post lumbar puncture headache Discharge ED - Sign-Out/Discharge Documenting (check all that apply): Patient Departure - Discharge All imaging exams completed and their final reports reviewed: Yes Patient Received Moderate/Deep Sedation with Procedure: No - Discharge Plan Condition: Stable Disposition: HOME - Billing Disposition and Condition Condition: STABLE Disposition: Home - Attestation Statements Document Initiated by Dimitry: Yes Documenting Scribe: Iglesia Vance Provider For Whom Dimitry is Documenting (Include Credential): Juan Luis Redding MD Scribe Attestation: Iglesia Rodriguez, scribed for Juan Luis Redding MD on 06/23/19 at 2043. Scribe Documentation Reviewed: Yes Provider Attestation: The documentation as recorded by the Iglesia gannon accurately reflects the service I personally performed and the decisions made by me, Juan Luis Redding MD Status of Scribe Document: Viewed
[2019-06-23] MEDS ORDERED: Ondansetron ODT TAB* 4 MG PO ONE (14:52)
[2019-06-23] MEDS ORDERED: Caffeine Citrate ORAL* 20 MG/ML ORAL.SOLN 3 ML (preservative free) PO ONE (15:30)
[2019-06-23] MEDS ORDERED: NS 0.9% 1000 ML** 1,000 ML IV ONE (16:50)
--- NOTE | 2019-06-23 20:02 | CONSULT ---
Consult Consult: Anesthesiology Consult Asked to assess this 24 yoF for blood patch treatment of PDPH. I saw this patient in the ED intially at 1425. She was in room #8.She was awake, oriented complaining of head ache. It started yesterday along with fever and she came to ED. As part of workup, she had a diagnostic LP which was negative. All labs were within normal limits including WBC 5.6 platelets [address] Bobo's note reviewed. But since that time she says her headache was worse. Couldn't drive home, couldnt do anything. Headache was better later but when she got up after sleep this AM she says it was worse again. Denies photophobia, Nausea, no fever today. She was laying on stretcher when asked to sit up was not clear if headache was any worse but said "this is the worst headache of my life" . I discussed with her what a PDPH is and its treatment. Her mother was also present. Hydration, analgesia and caffeine help. PDPH will resolve with time but if severe, a blood patch may help. Discussed blood patch procedure including risk of PDPH with it. Given her statement about "worst headache" a head CT may be warranted and hydration which has not been initiated yet, started. I spoke with Dr Redding initially then PA. I told them I would return for re-evaluation in hour or so. I saw the patient second time at 1632. CT was done and negative but no IV was started. Patient still complaining of headache and wishes blood patch. Plans made to proceed in procedure room of OR once IV started and hydration initiated. Tara Marin MD
[2019-06-23 20:14] VITALS: BP 128/81
== END 2019-06-23 17:03 | disposition home or self-care (01) ==
LOC: ED 13:14 → OR 17:03
PROVIDERS: ATTEND Internal Medicine
DX: G97.1 Other reaction to spinal and lumbar puncture (principal)
CPT/HCPCS: 70450; 99283; A9270-GY

== ENCOUNTER 2019-06-25 10:04 | Emergency (ER) | payer BC ==
[2019-06-25] MEDS ORDERED: NS 0.9% 1000 ML** 1,000 ML IV ONE (10:20)
[2019-06-25] MEDS ORDERED: diPHENhydraMINE IV* 50 MG/ML 1 ml VIAL (BENADRYL) IV ONE (10:20)
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
[2019-06-25 10:39] LABS: ABS Lymphocytes 0.9 10^3/ul (1.0-4.8); ABS Monocytes 0.2 10^3/ul (0-0.8); ABS Neutrophils 4.5 10^3/ul (1.5-7.7); Eosinophil % 0.8 %; Hematocrit 38 % (35-47); Lymphocyte % 15.2 %; Mean Corpuscular HGB Conc 34 g/dL (31-36); Mean Corpuscular Hemoglobin 30 pg (27-31); Mean Corpuscular Volume 87 fL (80-97); Mean Platelet Volume 8.4 fL (7.4-10.4); Platelet Count 166 10^3/uL (150-450); Red Blood Count 4.35 10^6 /uL (3.70-4.87); Red Cell Distribution Width 13 % (10-15); White Blood Count 5.7 10^3/uL (3.5-10.8)
[2019-06-25 11:24] LABS: ALT 11 U/L (7-52); AST 12 U/L (13-39); Albumin 4.1 g/dL (3.2-5.2); Albumin/Globulin Ratio 1.4 (1-3); Alkaline Phosphatase 53 U/L (34-104); Anion Gap 9 mmol/L (2-11); BUN/Creatinine Ratio 9.3 (8-20); Blood Urea Nitrogen 8 mg/dL (6-24); C Reactive Protein 17.27 mg/L (<8.01); CO2 Carbon Dioxide 25 mmol/L (22-32); Chloride 104 mmol/L (101-111); Creatine Kinase 52 U/L (10-223); EGFR African American 98.9 (>60); EGFR Non-African American 81.8 (>60); Globulin 2.9 g/dL (2-4); Glucose 87 mg/dL (70-100); Potassium 3.7 mmol/L (3.5-5.0); Sodium 138 mmol/L (135-145)
[2019-06-25 11:26] LABS: TSH (Thyroid Stimulating Horm) 2.81 mcIU/mL (0.34-5.60)
[2019-06-25 11:29] LABS: HCG Pregnancy < 0.60 mIU/mL
[2019-06-25] MEDS ORDERED: Iohexol 350* (CONTRAST) 500 ML MDV IV ONE (11:56)
[2019-06-25] MEDS ORDERED: Lidocaine 1% MPF ** 5 ML VIAL INJ ONE (13:40)
[2019-06-25] MEDS ORDERED: LORazepam INJ* 2 MG/ML 1 ML VIAL IV PUSH ONE (14:37)
[2019-06-25] MEDS ORDERED: Lorazepam PYXIS KEY PRN (14:37)
[2019-06-25 15:24] VITALS: BP 113/82
== END 2019-06-25 15:42 | disposition home or self-care (01) ==
LOC: ED 10:04
DX: M54.2 Cervicalgia (principal); R51 Headache; R00.0 Tachycardia, unspecified; Z79.899 Other long term (current) drug therapy; Z88.0 Allergy status to penicillin
CPT/HCPCS: 36415; 70496; 70498; 80053; 82550; 84443; 84484; 84702; 85025; 86140; 93005; 96361; 96374; 96375; 99283; J1200; J2060; Q9967

== ENCOUNTER 2019-08-29 12:00 | Emergency (ER) | payer BC ==
--- OUTSIDE RECORDS SUMMARY | 2019-08-29 12:06 | XMS REPORT | Continuity of Care Document ---
:1995 External Reference #:[id number] Author Name Jayme Degroot M.D. 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 Onset: 07/26/2013 Palpitations Sherman Jin M.D. Onset: 07/26/2013 Hemiplegic migraine Arnol Bee MD Onset: 10/08/2016 Optic neuritis Arnol Bee MD Onset: 10/08/2016 Degeneration of lumbar intervertebral disc Jayme Price M.D. Onset: 2016 Social History Type Date Description Comments Sex Unknown ETOH Use Occasionally consumes alcohol Recreational Drug Use Denies Drug Use Tobacco Use Start: Unknown Patient has never smoked Smoking Status Reviewed: 08/23/19 Patient has never smoked Exercise Type/Frequency Exercises regularly Exercise Type/Frequency Jogs daily 1.2 miles Exercise Type/Frequency Walks daily 1.2 miles Exercise Type/Frequency but she cannot jog now Allergies, Adverse Reactions, Alerts Active Allergies Reaction Severity Comments Date Penicillin cough, throat tightness 10/08/2016 Inactive Allergies NKDA 07/26/2013 Medications Active Medications SIG Qnty Indications Ordering Provider Date Cyclobenzaprine HCL take 1 tab by Unknown 10mg mouth 2-3 times Tablets a day as needed History Medications Meloxicam take 1 pill a day by 30tabs Kailee Pena, 06/15/2019 - 7.5mg mouth per pt as M.D. 08/22/2019 Tablets needed B12 Fast Dissolve sublingual daily 90tabs Tommie Marie, 04/03/2019 - M.D. 07/09/2019 5000mcg Tablets Dispers Immunizations Description No Information Available Vital Signs Date Vital Result Comment 08/23/2019 10:00am Height 66 inches 5'6" Weight 147.00 lb Heart Rate 82 /min BP Systolic 128 mmHg BP Diastolic 74 mmHg BMI (Body Mass Index) 23.7 kg/m2 08/10/2019 2:57pm Height 66 inches 5'6" Weight 149.00 lb Heart Rate 68 /min BP Systolic 122 mmHg BP Diastolic 76 mmHg Respiratory Rate 16 /min Pain Level 8 BMI (Body Mass Index) 24.0 kg/m2 Results Test Acquired Date Facility Test Result H/L Range Note CBC Auto 06/25/2019 [facility] White Blood 5.7 10^3/uL Normal 3.5-10.[address] [place] [address] [phone] Red Blood Count 4.35 10^6/uL Normal 3.70-4.87 Hemoglobin 13.0 g/dL Normal 12.0-16.0 Hematocrit 38 % Normal 35-47 Mean Corpuscular Volume 87 fL Normal 80-97 Mean Corpuscular Hemoglobin 30 pg Normal 27-31 Mean Corpuscular HGB Conc 34 g/dL Normal 31-36 Red Cell Distribution Width 13 % Normal 10-15 Platelet Count 166 10^3/uL Normal 150-450 Mean Platelet Volume 8.4 fL Normal 7.4-10.4 Abs Neutrophils 4.5 10^3/uL Normal 1.5-7.7 Abs Lymphocytes 0.9 10^3/uL Low 1.0-4.8 Abs Monocytes 0.2 10^3/uL Normal 0-0.8 Abs Eosinophils 0.0 10^3/uL Normal 0-0.6 Abs Basophils 0.0 10^3/uL Normal 0-0.2 Abs Nucleated RBC 0.0 10^3/uL Granulocyte % 79.2 % Lymphocyte % 15.2 % Monocyte % 4.2 % Eosinophil % 0.8 % Basophil % 0.6 % Nucleated Red Blood Cells % 0.0 Comp Metabolic 06/25/2019 [facility] Sodium 138 mmol/L Normal 135-[address] [place] [address] [phone] Potassium 3.7 mmol/L Normal 3.5-5.0 Chloride 104 mmol/L Normal 101-111 Co2 Carbon Dioxide 25 mmol/L Normal 22-32 Anion Gap 9 mmol/L Normal 2-11 Glucose 87 mg/dL Normal 70-100 Blood Urea Nitrogen 8 mg/dL Normal 6-24 Creatinine 0.86 mg/dL Normal 0.51-0.95 BUN/Creatinine Ratio 9.3 Normal 8-20 Calcium 9.0 mg/dL Normal 8.6-10.3 Total Protein 7.0 g/dL Normal 6.4-8.9 Albumin 4.1 g/dL Normal 3.2-5.2 Globulin 2.9 g/dL Normal 2-4 Albumin/Globulin Ratio 1.4 Normal 1-3 Total Bilirubin 0.60 mg/dL Normal 0.2-1.0 Alkaline Phosphatase 53 U/L Normal 34-104 Alt 11 U/L Normal 7-52 Ast 12 U/L Low 13-39 Egfr Non- 81.8 >60 Egfr 98.9 >60 1 Laboratory test 06/25/2019 [facility] Creatine 52 U/L Normal 10-[address] Kinase(CK) [place] [address] [phone] C Reactive Protein 17.27 mg/L High <8.01 Troponin-I (TnI) 0.00 ng/mL <0.04 2 TSH (Thyroid Stim Horm) 2.81 mcIU/mL Normal 0.34-5.60 HCG < 0.60 mIU/mL 3 Laboratory test 06/22/2019 [facility] Lactic Acid 0.5 mmol/L Normal 0.5-2.0 [address] [place] [address] [phone] Tick-Borne 06/22/2019 [facility] Babesia Negative Negative Panel PCR Blood [address] [place] [address] [phone] Babesia ducani Negative Negative Babesia divergens/Mo-1 Negative Negative 5 Anaplasma phagocytophilum Negative Negative Ehrlichia chaffeensis Negative Negative Ehrlichia ewingii/canis Negative Negative Ehrlichia muris eauclairensis Negative Negative 6 B. miyamotoi PCR, B Negative Negative 7 Laboratory test 06/22/2019 [facility] C Reactive 31.29 mg/L High <8.[address] [place] [address] [phone] Lactic Acid 0.7 mmol/L Normal 0.5-2.0 8 Blood Culture SEE RESULT BELOW 9 Lyme Screen W/ Reflex To WB Negative Negative Comp Metabolic 06/22/2019 [facility] Sodium 135 mmol/L Normal 135-[address] [place] [address] [phone] Potassium 3.7 mmol/L Normal 3.5-5.0 Chloride 101 mmol/L Normal 101-111 Co2 Carbon Dioxide 26 mmol/L Normal 22-32 Anion Gap 8 mmol/L Normal 2-11 Glucose 99 mg/dL Normal 70-100 Blood Urea Nitrogen 6 mg/dL Normal 6-24 Creatinine 0.87 mg/dL Normal 0.51-0.95 BUN/Creatinine Ratio 6.9 Low 8-20 Calcium 9.2 mg/dL Normal 8.6-10.3 Total Protein 7.9 g/dL Normal 6.4-8.9 Albumin 4.8 g/dL Normal 3.2-5.2 Globulin 3.1 g/dL Normal 2-4 Albumin/Globulin Ratio 1.5 Normal 1-3 Total Bilirubin 0.70 mg/dL Normal 0.2-1.0 Alkaline Phosphatase 76 U/L Normal 34-104 Alt 12 U/L Normal 7-52 Ast 16 U/L Normal 13-39 Egfr Non- 80.7 >60 Egfr 97.6 >60 10 Laboratory 06/22/2019 [facility] D Dimer < 200 Normal Less [address] Quantitative ng/mL Than [place], [place] [id number] [phone] Troponin-I (TnI) 0.00 ng/mL <0.04 12 Inr/Protime 06/22/2019 [facility] Inr 1.06 Normal 0.82-1.[address] [place] [address] [phone] Laboratory test 06/22/2019 [facility] CSF Protein 24 mg/dL Normal 15-45 14, finding [address] 15 [place] [address] [phone] CSF Glucose 65 mg/dL Normal 40-70 16 CSF Culture & 06/22/2019 [facility] CSF Culture SEE RESULT [address] [place] [address] [phone] CSF Cell Count 06/22/2019 [facility] Body Fluid Cerebral [address] [place] [address] [phone] Body Fluid Appearance Clear Body Fluid Color Colorless CSF Tube # 4 Body Fluid Volume 1 mL Body Fluid WBC 0 /mcL Body Fluid RBC 6 /mcL Body Fluid Total Cells Counted 0 18 Fluid Reviewed By MD (SEE NOTE) 19 Urinalysis Profile 06/22/2019 [facility] Urine Color Yellow [address] [place] [address] [phone] Urine Appearance Clear Urine Specific [place] 1.012 Normal 1.010-1.030 Urine pH 6.0 Normal 5-9 Urine Urobilinogen Negative Negative Urine Ketones Negative Negative Urine Protein Negative Negative Urine Leukocytes Negative Negative Urine Blood Negative Negative Urine Nitrite Negative Negative Urine Bilirubin Negative Negative Urine Glucose Negative Negative CBC Auto 06/22/2019 [facility] White Blood 5.6 10^3/uL Normal 3.5-10.[address] [place] [address] [phone] Red Blood Count 4.65 10^6/uL Normal 3.70-4.87 Hemoglobin 14.1 g/dL Normal 12.0-16.0 Hematocrit 40 % Normal 35-47 Mean Corpuscular Volume 87 fL Normal 80-97 Mean Corpuscular Hemoglobin 30 pg Normal 27-31 Mean Corpuscular HGB Conc 35 g/dL Normal 31-36 Red Cell Distribution Width 13 % Normal 10-15 Platelet Count 140 10^3/uL Low 150-450 Mean Platelet Volume 9.0 fL Normal 7.4-10.4 Abs Neutrophils 4.8 10^3/uL Normal 1.5-7.7 Abs Lymphocytes 0.4 10^3/uL Low 1.0-4.8 Abs Monocytes 0.5 10^3/uL Normal 0-0.8 Abs Eosinophils 0.0 10^3/uL Normal 0-0.6 Abs Basophils 0.0 10^3/uL Normal 0-0.2 Abs Nucleated RBC 0.0 10^3/uL Granulocyte % 85.2 % Lymphocyte % 6.3 % Monocyte % 8.4 % Eosinophil % 0.0 % Basophil % 0.1 % Nucleated Red Blood Cells % 0.0 Herpes Simplex 06/22/2019 [facility] HSV 1 PCR, Negative Negative Virus PCR CSF [address] [place] [address] [phone] HSV 2 PCR, CSF Negative Negative 20 Lyme POLICE CHIEF Igg 06/22/2019 [facility] Lyme POLICE CHIEF Negative Negative Serum/CSF [address] [facility] Infection IgG, [place] [address] CSF [phone] Lyme POLICE CHIEF Infection IgG, Interp See Comment 21 Lyme POLICE CHIEF Infection IgG, Serum See Comment 22 Protein 04/28/2019 [facility] Total 7.3 g/dL 6.3 - Electrophoresis 101 [facility] Protein(Pep) 7.9 [place] [address] [phone] Albumin 3.7 g/dL 3.4-4.7 Alpha-1 Globulin 0.2 g/dL 0.1-0.3 Alpha-2 Globulin 0.8 g/dL 0.6-1.0 Beta Globulin 1.1 g/dL 0.7-1.2 Gamma Globulin 1.5 g/dL 0.6-1.6 Albumin/Globulin Ratio 1.03 Impression See Comment 23 Anca AB Ser If 04/19/2019 [facility] C-Anca Negative Negative [address] [place] [address] [phone] P-Anca Negative Negative 24 Laboratory test 04/19/2019 [facility] Glomerular <0.2 U [address] [place] [address] [place] [address] [phone] Urinalysis Profile 04/19/2019 [facility] Urine Color Yellow [address] [place] [address] [phone] Urine Appearance Clear Urine Specific [place] 1.014 Normal 1.010-1.030 Urine pH 5.0 Normal 5-9 Urine Urobilinogen Negative Negative Urine Ketones Negative Negative Urine Protein Negative Negative Urine Leukocytes Negative Negative Urine Blood Negative Negative Urine Nitrite Negative Negative Urine Bilirubin Negative Negative Urine Glucose Negative Negative Basic Metabolic 04/19/2019 [facility] Sodium 138 mmol/L Normal 135-[address] [place] [address] [phone] Potassium 4.0 mmol/L Normal 3.5-5.0 Chloride 103 mmol/L Normal 101-111 Co2 Carbon Dioxide 27 mmol/L Normal 22-32 Anion Gap 8 mmol/L Normal 2-11 Glucose 81 mg/dL Normal 70-100 Blood Urea Nitrogen 12 mg/dL Normal 6-24 Creatinine 0.79 mg/dL Normal 0.51-0.95 BUN/Creatinine Ratio 15.2 Normal 8-20 Calcium 9.9 mg/dL Normal 8.6-10.3 Egfr Non- 90.2 >60 Egfr 109.1 >60 26 Laboratory test 03/28/2019 [facility] Erythrocyte Sed 6 mm/Hr Normal 0-[address] [place] [address] [phone] C Reactive Protein 2.02 mg/L Normal <8.01 TSH (Thyroid Stim Horm) 2.34 mcIU/mL Normal 0.34-5.60 T3 Free 3.00 pg/mL Normal 2.5-3.9 Free T4 (Free Thyroxine) 0.76 ng/dL Normal 0.61-1.12 CBC Auto 03/28/2019 [facility] White Blood 5.2 10^3/uL Normal 3.5-10.[address] Count [place], [place] [id number] [phone] Red Blood Count 4.78 10^6/uL Normal 3.70-4.87 Hemoglobin 13.6 g/dL Normal 12.0-16.0 Hematocrit 41 % Normal 35-47 Mean Corpuscular Volume 85 fL Normal 80-97 Mean Corpuscular Hemoglobin 29 pg Normal 27-31 Mean Corpuscular HGB Conc 34 g/dL Normal 31-36 Red Cell Distribution Width 16 % High 10-15 Platelet Count 216 10^3/uL Normal 150-450 Mean Platelet Volume 8.6 fL Normal 7.4-10.4 Abs Neutrophils 3.0 10^3/uL Normal 1.5-7.7 Abs Lymphocytes 1.8 10^3/uL Normal 1.0-4.8 Abs Monocytes 0.3 10^3/uL Normal 0-0.8 Abs Eosinophils 0.1 10^3/uL Normal 0-0.6 Abs Basophils 0.1 10^3/uL Normal 0-0.2 Abs Nucleated RBC 0.0 10^3/uL Granulocyte % 57.5 % Lymphocyte % 34.0 % Monocyte % 6.2 % Eosinophil % 1.3 % Basophil % 1.0 % Nucleated Red Blood Cells % 0.1 Laboratory test 03/28/2019 [facility] Nuclear AB <1:80 (Negative ) [address] (Becky) [place] [address] Igg [phone] Complement C3 118 mg/dL 75 - 175 28 Complement C4 17 mg/dL 14 - 40 29 Anti Double Stranded Dna AB <12.3 IU/mL 30 Comp Metabolic 03/28/2019 [facility] Sodium 138 mmol/L Normal 135-[address] [place] [address] [phone] Potassium 4.1 mmol/L Normal 3.5-5.0 Chloride 104 mmol/L Normal 101-111 Co2 Carbon Dioxide 28 mmol/L Normal 22-32 Anion Gap 6 mmol/L Normal 2-11 Glucose 89 mg/dL Normal 70-100 Blood Urea Nitrogen 11 mg/dL Normal 6-24 Creatinine 0.98 mg/dL High 0.51-0.95 BUN/Creatinine Ratio 11.2 Normal 8-20 Calcium 9.5 mg/dL Normal 8.6-10.3 Total Protein 7.0 g/dL Normal 6.4-8.9 Albumin 4.2 g/dL Normal 3.2-5.2 Globulin 2.8 g/dL Normal 2-4 Albumin/Globulin Ratio 1.5 Normal 1-3 Total Bilirubin 0.50 mg/dL Normal 0.2-1.0 Alkaline Phosphatase 68 U/L Normal 34-104 Alt 20 U/L Normal 7-52 Ast 18 U/L Normal 13-39 Egfr Non- 70.3 >60 Egfr 85.1 >60 31 Laboratory test 03/28/2019 [facility] Vitamin D 22.6 ng/mL Normal 20-50 [address] Total 25(Oh) [place] [address] [phone] Vitamin B12 And 03/28/2019 [facility] Vitamin B12 323 pg/mL Normal 180-914 33 Folate Serum [address] [place] [address] [phone] Folic Acid (Folate) 14.21 ng/mL >3.99 [place] Igg AB Reflex 03/28/2019 [facility] SS-A/Ro Antibody <0.2 U [address] [place] [address] [phone] SS-B/La Antibody <0.2 U 35 Sm (Orozco) IgG Antibody <0.2 U 36 ENGINEERING SURVEYOR Antibody, IgG 0.2 U 37 Scl-70 (Scleroderma) Antibody 2.6 U Abnormal 38 Gisell-1 Antibody <0.2 U 39 1 Because ethnic data is not always readily available, this report includes an eGFR for both -Americans and non- Americans. The National Kidney Disease Education Program (NKDEP) does not endorse the use of the MDRD equation for patients that are not between the ages of 18 and 70, are , have extremes of body size, muscle mass, or nutritional status, or are non- or non-. According to the National Kidney Foundation, irrespective of diagnosis, the stage of the disease is based on the level of kidney function: Stage Description GFR(mL/min/1.73 m(2)) 1 Kidney damage with normal or decreased GFR 90 2 Kidney damage with mild decrease in GFR 60-89 3 Moderate decrease in GFR 30-59 4 Severe decrease in GFR 15-29 5 Kidney failure <15 (or dialysis) 2 Troponin-I testing on Plasma Separator Tubes (PST) has a known false positive rate of 0.20-0.40%. All positive troponins reflex immediately to secondary confirmatory testing. Using the [employer] DxI 800 Access Immunoassay systems, the 99th percentile upper reference limit was demonstrated to be < 0.03 ng/mL. 3 <5.0 Negative 5.0 - 25.0 Indeterminate (Repeat testing recommended after 72 hours) >25.0 Positive Perimenopausal women can display HCG levels of up to 20 mIU/mL 4 [facility] Severe Sepsis and Septic Shock Management Bundle Measure requires all lactic acids initially measuring >2.0 mmol/L be repeated. 5 ADDITIONAL INFORMATION This test was developed and its performance characteristics determined by [facility] in a manner consistent with CLIA requirements. This test has not been cleared or approved by the U.S. Food and Drug Administration. 6 ADDITIONAL INFORMATION This test was developed and its performance characteristics determined by [facility] in a manner consistent with CLIA requirements. This test has not been cleared or approved by the U.S. Food and Drug Administration. 7 ADDITIONAL INFORMATION This test was developed and its performance characteristics determined by [facility] in a manner consistent with CLIA requirements. This test has not been cleared or approved by the U.S. Food and Drug Administration. Test Performed by: [facility] [place] [address] Supervisor Wet Room: Mulugeta Stevens M.D. Ph.D.; CLIA# [id number] 8 [facility] Severe Sepsis and Septic Shock Management Bundle Measure requires all lactic acids initially measuring >2.0 mmol/L be repeated. 9 SEE RESULT BELOW Name: ARABELLA GARCIA : [address]: Jose Luis Bobo MD Acct: [id number] Unit: [id number] AGE: 24 Location: ED Re06/22/19 SEX: F Status: REG ER SPEC: [id number] RACHNA: 06/22/19-[address] [facility] [address]: Jose Luis Bobo MD REQ: [id number] RECD: 06/22/19 STATUS: REHAN NICHOLAS DR: Tommie Marie MD _ SOURCE: BLOOD,VENO SPDESC: ORDERED: Blood Cult Procedure Result Reported Site Aerobic Culture Bottle Final 06/27/19- 1104 ML No Growth Day 5 Anaerobic Culture Bottle Final 06/27/19- 1104 ML No Growth Day 5 * ML - Main Lab . END OF REPORT DEPARTMENT OF PATHOLOGY, [address] [place] [address] Darwin Feliz M.D. Director [facility] # [id number] 10 Because ethnic data is not always readily available, this report includes an eGFR for both -Americans and non- Americans. The National Kidney Disease Education Program (NKDEP) does not endorse the use of the MDRD equation for patients that are not between the ages of 18 and 70, are , have extremes of body size, muscle mass, or nutritional status, or are non- or non-. According to the National Kidney Foundation, irrespective of diagnosis, the stage of the disease is based on the level of kidney function: Stage Description GFR(mL/min/1.73 m(2)) 1 Kidney damage with normal or decreased GFR 90 2 Kidney damage with mild decrease in GFR 60-89 3 Moderate decrease in GFR 30-59 4 Severe decrease in GFR 15-29 5 Kidney failure <15 (or dialysis) 11 Please note: The following may produce a false positive D Dimer test: - Rheumatoid factor greater than 60 IU/ml - Plasma hemoglobin greater than 0.05 gm/dl - Bilirubin greater than 50 mg/dl - Lipids greater than 1000 mg/dl - FDP greater than 20 ug/ml 12 Troponin-I testing on Plasma Separator Tubes (PST) has a known false positive rate of 0.20-0.40%. All positive troponins reflex immediately to secondary confirmatory testing. Using the [employer] DxI 800 Access Immunoassay systems, the 99th percentile upper reference limit was demonstrated to be < 0.03 ng/mL. 13 Standard intensity warfarin therapeutic range: 2.0-3.0 High intensity warfarin therapeutic range: 2.5-3.5 14 Comment: Tube # 2 15 Comment: Tube # 2 16 Comment: Tube # 2 17 SEE RESULT BELOW Name: ARABELLA GARCIA : [address]: Jose Luis Bobo MD Acct: [id number] Unit: [id number] AGE: 24 Location: ED Re06/22/19 SEX: F Status: REG ER SPEC: [id number] RACHNA: 06/22/[address] [facility] [address]: Jose Luis Bobo MD REQ: [id number] RECD: 06/22/193131 STATUS: REHAN NICHOLAS DR: Tommie Marie MD _ SOURCE: CSF SPDESC: ORDERED: CSF Cult/GS COMMENTS: Comment: Tube # 3 Procedure Result Reported Site CSF Gram Stain Final 06/22/19- 1440 ML 1+ Nucleated Cells No Organisms Seen Preparation By Cytospin Smear CSF Culture Final 06/26/19- 0826 ML No Growth Day 4 * ML - Main Lab . END OF REPORT DEPARTMENT OF PATHOLOGY, [address] [place] [address] Darwin Feliz M.D. Director CLIA # [id number] 18 No WBCs seen on concentrated smear 19 No evidence of an acute inflammatory response. No evidence of malignancy. Reviewed by Tanisha Patricia MD 20 Test Performed by: [address] [address] Supervisor Wet Room: Mulugeta Stevens M.D. Ph.D.; CLIA# [id number] 21 No antibodies to Lyme Borrelia species detected in cerebrospinal fluid. A negative result in a patient with appropriate exposure history and symptoms consistent with neuroinvasive Lyme disease should not be used to exclude infection. If not already performed, testing for antibodies to Lyme Borrelia species in serum should be performed. ADDITIONAL INFORMATION This test was developed and its performance characteristics determined by [facility] in a manner consistent with CLIA requirements. This test has not been cleared or approved by the U.S. Food and Drug Administration. 22 CSF screen was negative for IgG-class antibodies to Lyme Borrelia species. Testing for IgG-class antibodies to Borrelia in serum is not indicated and was not performed. Test Performed by: [facility] [place] [address] Supervisor Wet Room: Mulugeta Stevens M.D. Ph.D.; CLIA# [id number] 23 RESULT: No apparent monoclonal protein on serum electrophoresis. Test Performed by: [facility] [place] [address] 24 Negative for cANCA and pANCA patterns by immunofluorescence. ADDITIONAL INFORMATION This test was developed and its performance characteristics determined by [facility] in a manner consistent with CLIA requirements. This test has not been cleared or approved by the U.S. Food and Drug Administration. Test Performed by: [facility] [place] [address] 25 REFERENCE VALUE <1.0 (Negative) Test Performed by: [facility] [place] [address] 26 Because ethnic data is not always readily available, this report includes an eGFR for both -Americans and non- Americans. The National Kidney Disease Education Program (NKDEP) does not endorse the use of the MDRD equation for patients that are not between the ages of 18 and 70, are , have extremes of body size, muscle mass, or nutritional status, or are non- or non-. According to the National Kidney Foundation, irrespective of diagnosis, the stage of the disease is based on the level of kidney function: Stage Description GFR(mL/min/1.73 m(2)) 1 Kidney damage with normal or decreased GFR 90 2 Kidney damage with mild decrease in GFR 60-89 3 Moderate decrease in GFR 30-59 4 Severe decrease in GFR 15-29 5 Kidney failure <15 (or dialysis) 27 <1:80 (Negative) REFERENCE VALUE <1:80 (Negative) Test Performed by: [facility] [place] [address] 28 Test Performed by: [facility] [place] [address] 29 Test Performed by: [facility] [place] [employer] [address] [place] [address] 30 REFERENCE VALUE <30.0 (Negative) Test Performed by: [facility] [employer] [address] [place] [address] 31 Because ethnic data is not always readily available, this report includes an eGFR for both -Americans and non- Americans. The National Kidney Disease Education Program (NKDEP) does not endorse the use of the MDRD equation for patients that are not between the ages of 18 and 70, are , have extremes of body size, muscle mass, or nutritional status, or are non- or non-. According to the National Kidney Foundation, irrespective of diagnosis, the stage of the disease is based on the level of kidney function: Stage Description GFR(mL/min/1.73 m(2)) 1 Kidney damage with normal or decreased GFR 90 2 Kidney damage with mild decrease in GFR 60-89 3 Moderate decrease in GFR 30-59 4 Severe decrease in GFR 15-29 5 Kidney failure <15 (or dialysis) 32 Total 25-Hydroxyvitamin D2 and D3 (25-OH-VitD) <10 ng/mL (severe deficiency) 10-19 ng/mL (mild to moderate deficiency) 20-50 ng/mL (optimum levels) 51-80 ng/mL (increased risk of hypercalciuria) >80 ng/mL (toxicity possible) 33 Normal Range 180 to 914 Indeterminate Range 145 to 180 Deficient Range <145 34 REFERENCE VALUE <1.0 (Negative) 35 REFERENCE VALUE <1.0 (Negative) 36 REFERENCE VALUE <1.0 (Negative) 37 REFERENCE VALUE <1.0 (Negative) 38 Interpretation: Positive (>=1.0) REFERENCE VALUE <1.0 (Negative) 39 REFERENCE VALUE <1.0 (Negative) Test Performed by: [facility] [address] [place] [id number] Procedures Description No Information Available Medical Devices Description No Information Available Encounters Type Date Location Provider Dx Diagnosis Office Visit 08/10/2019 [facility] Kailee M36.8 Systemic disord of 3:00p at [facility] in oth diseases classd elswhr Office Visit 07/10/2019 [facility] M51.36 Other intervertebral 4:00p [facility] MD disc degeneration, lumbar region Office Visit 06/15/2019 [facility] Susan Bitting, M79.602 Pain in left arm 10:15a at [place] [facility] M79.601 Pain in right arm Office Visit 03/28/2019 11:40a Rheumatology Tommie Marie M36.8 Systemic disord [facility] dianelys in oth diseases classd elswhr R53.83 Other fatigue R76.0 Raised antibody titer Z79.1 shelter (current) use of non-steroidal non-inflam (Nsaid) Assessments Date Code Description Provider 08/23/2019 M54.12 Radiculopathy, cervical region Jayme Degroot M.D. 08/23/2019 G43.109 Migraine with aura, not intractable, Jayme Degroot M.D. without status migrainosus 08/10/2019 M36.8 Systemic disorders of connective tissue Kailee Pena M.D. in other diseases cl 07/10/2019 M51.36 Other intervertebral disc degeneration, Vassilhayley Rivero MD lumbar region 06/15/2019 M79.602 Pain in left arm Susan Ordaz, [facility] 06/15/2019 M79.601 Pain in right arm Susan Ordaz, [facility] 03/28/2019 M36.8 Systemic disorders of connective tissue Tommie Marie M.D. in other diseases cl 03/28/2019 R53.83 Other fatigue Tommie Marie M.D. 03/28/2019 R76.0 Raised antibody titer Tommie Marie M.D. 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 anti-inflammatories Plan of Treatment 08/23/2019 - Jayme Degroot M.D.M54.12 Radiculopathy, cervical mesvnbY86.109 Migraine with aura, not intractable, without status migrainosusFollow up:PRN Functional Status Description No Information Available Mental Status Description No Information Available Referrals Refer to Reason for Referral Status Appt Date [facility] Sent [address] [facility] [id number] [place] [phone]
--- OUTSIDE RECORDS SUMMARY | 2019-08-29 12:06 | XMS REPORT | Continuity of Care Document ---
:1995 External Reference #:[id number] Author Name Kailee Pena M.D. (transmitted by agent of provider Jaclyn Le) Address [address] [place] [address] Care Team Providers Name Role Phone Idalia Maloney MD - Family Care Team Information Water Resource Engineering Specialist [phone] Medicine Problems Active Problems Provider Date Chest pain hSerman Jin M.D. Onset: 07/26/2013 Palpitations Sherman Jin M.D. Onset: 07/26/2013 Hemiplegic migraine Arnol Bee MD Onset: 10/08/2016 Optic neuritis Arnol Bee MD Onset: 10/08/2016 Degeneration of lumbar intervertebral disc Jayme Price M.D. Onset: 2016 Social History Type Date Description Comments Sex Unknown ETOH Use Denies alcohol use Recreational Drug Use Denies Drug Use Tobacco Use Start: Unknown Patient has never smoked Smoking Status Reviewed: 08/10/19 Patient has never smoked Exercise Type/Frequency Exercises regularly Exercise Type/Frequency Jogs daily 1.2 miles Exercise Type/Frequency Walks daily 1.2 miles Exercise Type/Frequency but she cannot jog now Allergies, Adverse Reactions, Alerts Active Allergies Reaction Severity Comments Date Penicillin cough, throat tightness 10/08/2016 Inactive Allergies NKDA 07/26/2013 Medications Active Medications SIG Qnty Indications Ordering Provider Date Meloxicam take 1 pill a 30tabs Kailee Pena, 06/15/2019 7.5mg Tablets day by mouth M.D. per pt as needed Norethindrone Unknown 0.35mg Tablets Cyclobenzaprine HCL take 1 tab by Unknown 10mg mouth 2-3 Tablets times a day as needed History Medications B12 Fast Dissolve sublingual daily 90tabs Tommie Carmendor, 04/03/2019 - Qiana 07/09/2019 5000mcg Tablets Dispers Immunizations Description No Information Available Vital Signs Date Vital Result Comment 08/10/2019 2:57pm Height 66 inches 5'6" Weight 149.00 lb Heart Rate 68 /min BP Systolic 122 mmHg BP Diastolic 76 mmHg Respiratory Rate 16 /min Pain Level 8 BMI (Body Mass Index) 24.0 kg/m2 07/10/2019 4:23pm Height 66 inches 5'6" Weight 148.00 lb Heart Rate 80 /min BP Systolic Sitting 112 mmHg BP Diastolic Sitting 68 mmHg Respiratory Rate 14 /min O2 % BldC Oximetry 98 % BMI (Body Mass Index) 23.9 kg/m2 Results Test Date Facility Test Result H/L Range Note CBC Auto 06/25/2019 [facility] White Blood 5.7 10^3/uL Normal 3.5-10.[address] [place] [address] [phone] Red Blood Count 4.35 10^6/uL Normal 3.70-4.87 [...] Blood Cells % 0.0 Comp Metabolic 06/25/2019 [facility] Sodium 138 mmol/L Normal 135-[address] [place] [address] [phone] Potassium 3.7 mmol/L Normal 3.5-5.0 Chloride 104 [...] Egfr 98.9 >60 1 Laboratory test 06/25/2019 [facility] Creatine 52 U/L Normal 10-223 finding 101 [facility] Kinase(CK) [place] [address] [phone] C Reactive Protein 17.27 mg/L High <8.01 Troponin-I (TnI) 0.00 ng/mL <0.04 2 TSH (Thyroid Stim Horm) 2.81 mcIU/mL Normal 0.34-5.60 HCG < 0.60 mIU/mL 3 Laboratory test 06/22/2019 [facility] Lactic Acid 0.5 mmol/L Normal 0.5-2.0 4 finding [address] [place] [address] [phone] Tick-Borne 06/22/2019 [facility] Babesia Negative Negative Panel PCR Blood [address] [place] [address] [phone] Babesia ducani Negative Negative Babesia divergens/Mo-1 Negative Negative 5 Anaplasma phagocytophilum Negative Negative Ehrlichia chaffeensis Negative Negative Ehrlichia ewingii/canis Negative Negative Ehrlichia muris eauclairensis Negative Negative 6 B. miyamotoi PCR, B Negative Negative 7 Laboratory test 06/22/2019 [facility] C Reactive 31.29 mg/L High <8.[address] [place] [address] [phone] Lactic Acid 0.7 mmol/L Normal 0.5-2.0 8 Blood Culture SEE RESULT BELOW 9 Lyme Screen W/ Reflex To WB Negative Negative Comp Metabolic 06/22/2019 [facility] Sodium 135 mmol/L Normal 135-[address] [place] [address] [phone] Potassium 3.7 mmol/L Normal 3.5-5.0 Chloride 101 [...] >60 Egfr 97.6 >60 10 Laboratory 06/22/2019 [facility] D Dimer < 200 Normal Less [address] Quantitative ng/[place] [address] [phone] Troponin-I (TnI) 0.00 ng/mL <0.04 12 Inr/Protime 06/22/2019 [facility] Inr 1.06 Normal 0.82-1.[address] [place] [address] [phone] Laboratory test 06/22/2019 [facility] CSF Protein 24 mg/dL Normal 15-45 14, finding [address] [place] [address] [phone] CSF Glucose 65 mg/dL Normal 40-70 16 CSF Culture & 06/22/2019 [facility] CSF Culture SEE RESULT [address] [place] [address] [phone] CSF Cell Count 06/22/2019 [facility] Body Fluid Cerebral [address] [place] [address] [phone] Body Fluid Appearance Clear Body Fluid Color Colorless CSF Tube # 4 Body Fluid Volume 1 mL Body Fluid WBC 0 /mcL Body Fluid RBC 6 /mcL Body Fluid Total Cells Counted 0 18 Fluid Reviewed By MD (SEE NOTE) 19 Urinalysis Profile 06/22/2019 [facility] Urine Color Yellow [address] [place] [address] [phone] Urine Appearance Clear Urine Specific [place] 1.012 Normal 1.010-1.030 Urine pH 6.0 Normal 5-9 Urine Urobilinogen Negative Negative Urine Ketones Negative Negative Urine Protein Negative Negative Urine Leukocytes Negative Negative Urine Blood Negative Negative Urine Nitrite Negative Negative Urine Bilirubin Negative Negative Urine Glucose Negative Negative CBC Auto 06/22/2019 [facility] White Blood 5.6 10^3/uL Normal 3.5-10.[address] [place] [address] [phone] Red Blood Count 4.65 10^6/uL Normal 3.70-4.87 [...] Blood Cells % 0.0 Herpes Simplex 06/22/2019 [facility] HSV 1 PCR, Negative Negative Virus PCR CSF [address] [place] [address] [phone] HSV 2 PCR, CSF Negative Negative 20 Lyme [employer] SPECIAL AGENT Igg 06/22/2019 [facility] Lyme [employer] SPECIAL AGENT Negative Negative Serum/CSF 101 Infection IgG, [place] [address] CSF [phone] Lyme [employer] SPECIAL AGENT Infection IgG, Interp See Comment 21 Lyme [employer] SPECIAL AGENT Infection IgG, Serum See Comment 22 Protein 04/28/2019 [facility] Total 7.3 g/dL 6.3 - Electrophoresis [address] [facility] Protein(Pep) 7.9 [place] [address] [phone] Albumin 3.7 g/dL 3.4-4.7 Alpha-1 Globulin 0.2 g/dL 0.1-0.3 Alpha-2 Globulin 0.8 g/dL 0.6-1.0 Beta Globulin 1.1 g/dL 0.7-1.2 Gamma Globulin 1.5 g/dL 0.6-1.6 Albumin/Globulin Ratio 1.03 Impression See Comment 23 Anca AB Ser If 04/19/2019 [facility] C-Anca Negative Negative [address] [place] [address] [phone] P-Anca Negative Negative 24 Laboratory test 04/19/2019 [facility] Glomerular <0.2 U 25 finding 101 [facility] [place] [address] [phone] Urinalysis Profile 04/19/2019 [facility] [place] [address] [phone] Urine Appearance Clear Urine Specific [place] 1.014 Normal 1.010-1.030 Urine pH 5.0 Normal 5-9 Urine Urobilinogen Negative Negative Urine Ketones Negative Negative Urine Protein Negative Negative Urine Leukocytes Negative Negative Urine Blood Negative Negative Urine Nitrite Negative Negative Urine Bilirubin Negative Negative Urine Glucose Negative Negative Basic Metabolic 04/19/2019 [facility] Sodium 138 mmol/L Normal 135-145 Panel [address] [place] [address] [phone] Potassium 4.0 mmol/L Normal 3.5-5.0 Chloride 103 mmol/L Normal 101-111 Co2 Carbon Dioxide 27 mmol/L Normal 22-32 Anion Gap 8 mmol/L Normal 2-11 Glucose 81 mg/dL Normal 70-100 Blood Urea Nitrogen 12 mg/dL Normal 6-24 Creatinine 0.79 mg/dL Normal 0.51-0.95 BUN/Creatinine Ratio 15.2 Normal 8-20 Calcium 9.9 mg/dL Normal 8.6-10.3 Egfr Non- 90.2 >60 Egfr 109.1 >60 26 Laboratory test 03/28/2019 [facility] Erythrocyte Sed 6 mm/Hr Normal 0-[address] [place] [address] [phone] C Reactive Protein 2.02 mg/L Normal <8.01 TSH (Thyroid Stim Horm) 2.34 mcIU/mL Normal 0.34-5.60 T3 Free 3.00 pg/mL Normal 2.5-3.9 Free T4 (Free Thyroxine) 0.76 ng/dL Normal 0.61-1.12 CBC Auto 03/28/2019 [facility] White Blood 5.2 10^3/uL Normal 3.5-10.[address] [place] [address] [phone] Red Blood Count 4.78 10^6/uL Normal 3.70-4.87 [...] Blood Cells % 0.1 Laboratory test 03/28/2019 [facility] Nuclear AB <1:80 (Negative ) [address] (Becky) [place] [address] Igg [phone] Complement C3 118 mg/dL 75 - 175 28 Complement C4 17 mg/dL 14 - 40 29 Anti Double Stranded Dna AB <12.3 IU/mL 30 Comp Metabolic 03/28/2019 [facility] Sodium 138 mmol/L Normal 135-[address] [place] [address] [phone] Potassium 4.1 mmol/L Normal 3.5-5.0 Chloride 104 [...] Egfr 85.1 >60 31 Laboratory test 03/28/2019 [facility] Vitamin D 22.6 ng/mL Normal 20-[address] Total 25(Oh) [place], [place] [address] [phone] Vitamin B12 And 03/28/2019 [facility] Vitamin B12 323 pg/mL Normal 180-914 [address] [place] [address] [phone] Folic Acid (Folate) 14.21 ng/mL >3.99 [place] Igg AB Reflex 03/28/2019 [facility] SS-A/Ro Antibody <0.[address] [place] [address] [phone] SS-B/La Antibody <0.2 U 35 Sm (Orozco) IgG Antibody <0.2 U 36 NUCLEAR REACTOR ENGINEER Antibody, IgG 0.2 U 37 Scl-70 (Scleroderma) [...] immediately to secondary confirmatory testing. Using the Tapatalk DxI 800 Access Immunoassay systems, the 99th percentile upper reference limit was demonstrated to be < 0.03 ng/mL. 3 <5.0 Negative 5.0 - 25.0 Indeterminate (Repeat testing recommended after 72 hours) >25.0 Positive Perimenopausal women can display HCG levels of up to 20 mIU/mL 4 [facility] Severe Sepsis and Septic Shock Management Bundle Measure requires all lactic acids initially measuring >2.0 mmol/L be repeated. 5 ADDITIONAL INFORMATION This test was developed and its performance characteristics determined by [facility] in a manner consistent with CLIA requirements. This test has not been cleared or approved by the U.S. Food and Drug Administration. 6 ADDITIONAL INFORMATION This test was developed and its performance characteristics determined by [facility] in a manner consistent with CLIA requirements. This test has not been cleared or approved by the U.S. Food and Drug Administration. 7 ADDITIONAL INFORMATION This test was developed and its performance characteristics determined by [facility] in a manner consistent with CLIA requirements. This test has not been cleared or approved by the U.S. Food and Drug Administration. Test Performed by: [facility] [place] [address] [place] Laborer: Mulugeta Stevens M.D. Ph.D.; CLIA# [id number] 8 [facility] Severe Sepsis and Septic Shock Management Bundle Measure requires all lactic acids initially measuring >2.0 mmol/L be repeated. 9 SEE RESULT BELOW Name: ARABELLA GARCIA : [address]: Jose Luis Bobo MD Acct: [id number] Unit: [id number] AGE: 24 Location: ED Re06/22/19 SEX: F Status: REG ER SPEC: [id number] RACHNA: 06/22/19-1056 [facility] DR: Jose Luis Bobo MD REQ: [id number] RECD: 06/22/19 STATUS: REHAN NICHOLAS DR: Tommie Marie MD _ SOURCE: BLOOD,VENO SPDESC: ORDERED: Blood Cult Procedure Result Reported Site Aerobic Culture Bottle Final 06/27/19- 1104 ML No Growth Day 5 Anaerobic Culture Bottle Final 06/27/19- 1104 ML No Growth Day 5 * ML - Main Lab . END OF REPORT DEPARTMENT OF PATHOLOGY, [address] [place] [address] Darwin Feliz M.D. Director [facility] # [id number] 10 Because ethnic data is not always [...] immediately to secondary confirmatory testing. Using the Tapatalk DxI 800 Access Immunoassay systems, the 99th percentile upper reference limit was demonstrated to be < 0.03 ng/mL. 13 Standard intensity warfarin therapeutic range: 2.0-3.0 High intensity warfarin therapeutic range: 2.5-3.5 14 Comment: Tube # 2 15 Comment: Tube # 2 16 Comment: Tube # 2 17 SEE RESULT BELOW Name: ARABELLA GARCIA : [address]: Jose Luis Bobo MD Acct: [id number] Unit: [id number] AGE: 24 Location: ED Re06/22/19 SEX: F Status: REG ER SPEC: [id number] RACHNA: 06/22/19-1344 [facility] DR: Jose Luis Bobo MD REQ: [id number] RECD: 06/22/19371 STATUS: REHAN NICHOLAS DR: Tommie Marie MD _ SOURCE: CSF SPDESC: ORDERED: CSF Cult/GS COMMENTS: Comment: Tube # 3 Procedure Result Reported Site CSF Gram Stain Final 06/22/19- 1440 ML 1+ Nucleated Cells No Organisms Seen Preparation By Cytospin Smear CSF Culture Final 06/26/19- 0826 ML No Growth Day 4 * ML - Main Lab . END OF REPORT DEPARTMENT OF PATHOLOGY, [address] [place] [address] Darwin Feliz M.D. Director [place] # [id number] 18 No WBCs seen on concentrated smear 19 No evidence of an acute inflammatory response. No evidence of malignancy. Reviewed by Tanisha Patricia MD 20 Test Performed by: [facility] - [address] [address] [place] Laborer: Mulugeta Stevens M.D. Ph.D.; CLIA# [id number] 21 No antibodies to Lyme Borrelia species detected in cerebrospinal fluid. A negative result in a patient with appropriate exposure history and symptoms consistent with neuroinvasive Lyme disease should not be used to exclude infection. If not already performed, testing for antibodies to Lyme Borrelia species in serum should be performed. ADDITIONAL INFORMATION This test was developed and its performance characteristics determined by [facility] in a manner consistent with CLIA requirements. This test has not been cleared or approved by the U.S. Food and Drug Administration. 22 CSF screen was negative for IgG-class antibodies to Lyme Borrelia species. Testing for IgG-class antibodies to Borrelia in serum is not indicated and was not performed. Test Performed by: [facility] [place] [address] [employer] Laborer: Mulugeta Stevesn M.D. Ph.D.; CLIA# [id number] 23 RESULT: No apparent monoclonal protein on serum electrophoresis. Test Performed by: [facility] [place] [address] 24 Negative for cANCA and pANCA patterns by immunofluorescence. ADDITIONAL INFORMATION This test was developed and its performance characteristics determined by [facility] in a manner consistent with CLIA requirements. This test has not been cleared or approved by the U.S. Food and Drug Administration. Test Performed by: [facility] [place] [address] 25 REFERENCE VALUE <1.0 (Negative) Test Performed by: [facility] [place] [address] 26 Because ethnic data is not always [...] REFERENCE VALUE <1:80 (Negative) Test Performed by: [facility] - [place] [address] 28 Test Performed by: [facility] [place] [address] 29 Test Performed by: [facility] [place] [employer] [place] [address] 30 REFERENCE VALUE <30.0 (Negative) Test Performed by: [facility] [place] [address] 31 Because ethnic data is not always [...] REFERENCE VALUE <1.0 (Negative) Test Performed by: [facility] - [facility] [address] [place] [address] Procedures Description No Information Available Medical Devices Description No Information Available Encounters Type Date Location Provider Dx Diagnosis Office Visit 06/15/2019 [facility] Susan Ordaz, M79.602 Pain in left arm 10:15a at [facility] M79.601 Pain in right arm Office Visit 03/28/2019 11:40a Rheumatology Tommie Marie, M36.8 Systemic disord [facility] in oth diseases classd elswhr R53.83 Other fatigue R76.0 Raised antibody titer 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 in other diseases cl 07/10/2019 M51.36 Other intervertebral disc degeneration, Klever Rivero MD lumbar region 06/15/2019 M79.602 Pain in left arm Susan Ordaz, RPA-C 06/15/2019 M79.601 Pain in right arm Susan Ordaz, RPA-C 03/28/2019 M36.8 Systemic disorders of connective tissue Tommie Marie M.D. in other diseases cl 03/28/2019 R53.83 Other fatigue Tommie Marie M.D. 03/28/2019 R76.0 Raised antibody titer Tommie Marie M.D. 03/28/2019 Z79.1 care home (current) use of non-steroidal Tommie Marie M.D. anti-inflammatories Plan of Treatment 08/10/2019 - Kailee Pena M.D.M36.8 Systemic disorders of connective tissue in other diseases clFollow up:Follow up: As needed Functional Status Description No Information Available Mental Status Description No Information Available Referrals Description No Information Available
== END 2019-08-29 13:00 | disposition left against medical advice (07) ==
LOC: UCEAST 12:00
DX: Z53.21 Procedure and treatment not carried out due to patient leaving prior to being seen by health care provider (principal)

== ENCOUNTER 2019-10-04 08:07 | Emergency (ER) | payer BC ==
--- NOTE | 2019-10-04 10:36 | UC ---
Lower Extremity/Ankle HPI - HPI Summary HPI Summary: ONSET 3 DAYS AGO OF RIGHT FOOT PAIN WHILE WALKING. WORST ALONG 5TH METATARSAL AND AT BASE OF TOES. PATIENT DENIES ANY DISCRETE INJURY OR TRAUMA. IS NOT A RUNNER. NO CHANGE IN ACTIVITY LEVEL. - History of Current Complaint Chief Complaint: UCLowerExtremity Stated Complaint: FOOT PAIN Time Seen by Provider: 10/04/19 10:08 Hx Obtained From: Patient Hx Last Menstrual Period: Sep 17 Onset/Duration: Sudden Onset, Lasting Days, Still Present Severity Initially: Moderate Severity Currently: Moderate Pain Intensity: 6 Pain Scale Used: 0-10 Numeric Aggravating Factor(s): Standing, Ambulation Alleviating Factor(s): Rest, Elevation Able to Bear Weight: Yes - WITH PAIN - Allergies/Home Medications Allergies/Adverse Reactions: Allergies Allergy/AdvReac Type Severity Reaction Status Date / Time Penicillins Allergy Severe Difficulty Verified 10/04/19 08:25 Breathing PMH/Surg Hx/FS Hx/Imm Hx - Additional Past Medical History Additional PMH: UNDIFFERENTIATED CONNECTIVE TISSUE DISEASE - Surgical History Surgical History: Yes Surgery Procedure, Year, and Place: LAPROSCOPY ENDOMETROSIS 10/03/2015;. LAPROSCOPY ECTOPIC 2016; - Family History Known Family History: Positive: Hypertension Family History: FHx of CVA - Father at 31 y/o - Social History Alcohol Use: Occasionally Substance Use Type: None Substance Use Comment - Amount & Last Used: meloxicam Smoking Status (MU): Never Smoked Tobacco Have You Smoked in the Last Year: Yes - SOME EXPOSURE, HOUSE MEMBER SMOKES OUTSIDE - Immunization History Most Recent Influenza Vaccination: 08/15/18 Most Recent Tetanus Shot: 05/27/16 Most Recent Pneumonia Vaccination: n/a Vaccination Up to Date: Yes Review of Systems All Other Systems Reviewed And Are Negative: Yes Constitutional: Positive: Negative Skin: Positive: Negative Respiratory: Positive: Negative Cardiovascular: Positive: Negative Gastrointestinal: Positive: Negative Musculoskeletal: Positive: Arthralgia Physical Exam Triage Information Reviewed: Yes Appearance: Well-Appearing, No Pain Distress, Well-Nourished Vital Signs: Initial Vital Signs Temp 98.8 F 10/04/19 08:22 Pulse 96 10/04/19 08:22 Resp 18 10/04/19 08:22 BP 109/73 10/04/19 08:22 Pulse Ox 100 10/04/19 08:22 Vital Signs Reviewed: Yes Eyes: Positive: Conjunctiva Clear ENT: Positive: Hearing grossly normal Neck: Positive: Supple Respiratory: Positive: No respiratory distress, No accessory muscle use Cardiovascular: Positive: Pulses Normal Abdomen Description: Positive: Soft Musculoskeletal: Positive: ROM Intact, No Edema, Other: - TTP RIGHT 5TH METATARSAL AND DORSAL MTP JOINTS Neurological: Positive: Alert Psychological: Positive: Age Appropriate Behavior Skin: Negative: Rashes Diagnostics - Radiology RIGHT FOOT XRAYS Radiology Interpretation Completed By: Radiologist Summary of Radiographic Findings: The soft tissues are unremarkable. The bone mineralization is within normal limits. No fracture is identified. Anatomic alignment is maintained. The joint spaces are preserved. Lower Extremity Course/Dx - Course Course Of Treatment: RIGHT FOOT X-RAY TODAY UNREMARKABLE. POSSIBLE FOOT SPRAIN. HAVE PLACED IN A CAM BOOT TO HELP WITH DISCOMFORT AND MOBILITY. ENCOURAGED PATIENT TO FOLLOW UP WITH HER SOFTWARE ANALYST IF HER SYMPTOMS DO NOT IMPROVE GIVEN HER HISTORY OF UNDIFFERENTIATED CONNECTIVE TISSUE DISEASE. HAVE ALSO SUGGESTED ORTHOPEDICS A POSSIBLE AVENUE FOR FURTHER INVESTIGATION. - Differential Dx/Diagnosis Provider Diagnosis: Right foot pain Discharge ED - Sign-Out/Discharge Documenting (check all that apply): Patient Departure All imaging exams completed and their final reports reviewed: Yes - Discharge Plan Condition: Stable Disposition: HOME Patient Education Materials: Foot Sprain (ED) Referrals: Iglesia Sanders MD [Medical Doctor] - Tommie Marie MD [Primary Care Provider] - 2 Weeks Additional Instructions: FOOT X-RAY TODAY UNREMARKABLE. POSSIBLE FOOT SPRAIN. RECOMMEND FOLLOW-UP WITH YOUR SOFTWARE ANALYST THIS MAY BE A MANIFESTATION OF YOUR CONNECTIVE-TISSUE DISEASE. CONTINUE ANTI-INFLAMMATORIES YOU HAVE BEEN DOING. REST, ELEVATE, CAM BOOT NEEDED TO HELP WITH MOBILITY AND DISCOMFORT. YOU MAY ALSO CONSIDER ORTHOPEDIC FOLLOW-UP IF YOUR SYMPTOMS PERSIST. - Billing Disposition and Condition Condition: STABLE Disposition: Home
[2019-10-04 11:06] VITALS: BP 111/59
== END 2019-10-04 11:12 | disposition home or self-care (01) ==
LOC: UCEAST 08:07
DX: M25.571 Pain in right ankle and joints of right foot (principal); Z88.0 Allergy status to penicillin
CPT/HCPCS: 99212; G0463

== ENCOUNTER 2019-11-14 09:10 | Emergency (ER) | payer BC ==
[2019-11-14 10:27] VITALS: BP 116/75
[2019-11-14] MEDS ORDERED: Ketorolac INJ* 30 MG/ML 1 ML VIAL IM ONE (11:11)
--- NOTE | 2019-11-14 12:29 | UC ---
Back Pain HPI - HPI Summary HPI Summary: 24-year-old female presents with complaints of low back pain. States yesterday she slipped on some ice and fell directly onto her buttocks onto a concrete sidewalk. Reports history of chronic back issues including a known bulging disc and compression fracture from a previous injury to she does not recall the exact location of these injuries. States pain worsens with any type of movement. Occasionally radiates down both legs. She has been taking ibuprofen and cyclobenzaprine without any relief. States she was also seen by her chiropractor yesterday with no relief in symptoms. Denies difficulty ambulating , numbness, tingling, or weakness of the lower extremities, loss of bowel or bladder control. - History of Current Complaint Chief Complaint: UCBackPain Stated Complaint: LOW BACK PAIN Time Seen by Provider: 11/14/19 11:02 Hx Obtained From: Patient Hx Last Menstrual Period: 11/10/19 Pain Intensity: 7 - Allergies/Home Medications Allergies/Adverse Reactions: Allergies Allergy/AdvReac Type Severity Reaction Status Date / Time Penicillins Allergy Severe Difficulty Verified 11/14/19 10:27 Breathing PMH/Surg Hx/FS Hx/Imm Hx - Additional Past Medical History Additional PMH: chronic back pain - Surgical History Surgical History: Yes Surgery Procedure, Year, and Place: LAPROSCOPY ENDOMETROSIS 10/03/2015;. LAPROSCOPY ECTOPIC 2016; - Family History Known Family History: Positive: Hypertension Family History: FHx of CVA - Father at 31 y/o - Social History Occupation: Employed Full-time Lives: Alone Alcohol Use: Weekly Substance Use Type: None Substance Use Comment - Amount & Last Used: meloxicam Smoking Status (MU): Never Smoked Tobacco Have You Smoked in the Last Year: Yes - SOME EXPOSURE, HOUSE [employer] SMOKES OUTSIDE - Immunization History Most Recent Influenza Vaccination: 08/15/18 Most Recent Tetanus Shot: 05/27/16 Most Recent Pneumonia Vaccination: n/a Vaccination Up to Date: Yes Review of Systems All Other Systems Reviewed And Are Negative: Yes Constitutional: Positive: Negative Skin: Positive: Negative Respiratory: Positive: Negative Cardiovascular: Positive: Negative Gastrointestinal: Positive: Negative Genitourinary: Positive: Negative Musculoskeletal: Positive: Other: - See HPI Neurological: Negative: Weakness, Paresthesia, Numbness Is Patient Immunocompromised?: No Physical Exam - Summary Physical Exam Summary: GENERAL APPEARANCE: Well developed, well nourished, alert and cooperative, and appears to be in no acute distress. CARDIAC: Normal S1 and S2. No S3, S4 or murmurs. Rhythm is regular. There is no peripheral edema, cyanosis or pallor. Extremities are warm and well perfused. Capillary refill is less than 2 seconds. Peripheral pulses intact. LUNGS: Clear to auscultation without rales, rhonchi, wheezing or diminished breath sounds. ABDOMEN: Positive bowel sounds. Soft, nondistended, nontender. No guarding or rebound. No masses or hepatosplenomegally. MUSKULOSKELETAL: ROM intact to all extremities. No joint erythema or tenderness. Normal muscular development. Normal gait. BACK: No midline spinal deformity or tenderness. Bilateral soft tissue paraspinous tenderness without muscular spasm. NEUROLOGICAL: Strength and sensation symmetric and intact to lower extremities. SKIN: Skin normal color, texture and turgor with no lesions or eruptions. Triage Information Reviewed: Yes Vital Signs: Initial Vital Signs Temp 98.5 F 11/14/19 10:22 Pulse 101 11/14/19 10:22 Resp 18 11/14/19 10:22 BP 116/75 11/14/19 10:22 Pulse Ox 100 11/14/19 10:22 Vital Signs Reviewed: Yes Diagnostics - Radiology No standard instances Radiology Interpretation Completed By: Radiologist Summary of Radiographic Findings: Order Information: SP LUMBARSACRAL 4+ VWS. INDICATION: Fall resulting in pain. History of compression fracture COMPARISON: July 27, 2019 lumbar spine radiograph. FINDINGS: There is normal lordotic curvature the lumbar spine without spondylolisthesis. The facets are anatomically aligned. The bone mineralization is within normal limits. Vertebral body heights are maintained. No displaced fracture is identified. There is a probable limbus vertebra along the anterior inferior endplate of L3. There is only mild intervertebral disc height loss at L5-S1. IMPRESSION: 1. Unchanged mild spondylosis. 2. Probable L3 limbus vertebra. Back Pain Course/Dx - Course Course Of Treatment: 24-year-old female presents with complaints of low back pain. States yesterday she slipped on some ice and fell directly onto her buttocks onto a concrete sidewalk. Reports history of chronic back issues including a known bulging disc and compression fracture from a previous injury to she does not recall the exact location of these injuries. States pain worsens with any type of movement. Occasionally radiates down both legs. She has been taking ibuprofen and cyclobenzaprine without any relief. States she was also seen by her chiropractor yesterday with no relief in symptoms. Denies difficulty ambulating , numbness, tingling, or weakness of the lower extremities, loss of bowel or bladder control. Afebrile. Vital signs stable. On exam patient had no midline spinal deformity or tenderness. There was some bilateral soft tissue paraspinous tenderness without muscular spasm. Strength and sensation were intact her lower extremities. Remainder of exam was unremarkable. X-ray of the LS-spine showed no acute injuries. Review the results with the patient. Recommending continued conservative treatment for acute low back pain. She is to follow-up with her primary care provider in 7 days if symptoms are not improving. Anticipatory guidance and warning symptoms reviewed with the patient. Verbalizes understanding and agrees with plan of care. - Differential Dx/Diagnosis Differential Diagnosis/HQI/PQRI: Cauda Equina Syndrome, Compressive Cord Syndrome, Fracture, Herniated Disc, Strain Provider Diagnosis: Acute low back pain Discharge ED - Sign-Out/Discharge Documenting (check all that apply): Patient Departure All imaging exams completed and their final reports reviewed: Yes - Discharge Plan Condition: Stable Disposition: HOME Prescriptions: Cyclobenzaprine TAB* [Flexeril 10 MG TAB*] 10 mg PO Q8HR PRN #21 tab PRN Reason: Spasms - Back Patient Education Materials: Acute Low Back Pain (ED) Referrals: Tommie Marie MD [Primary Care Provider] - 7 Days (If no improvement.) Additional Instructions: The x-ray performed in the clinic today showed no acute fracture. There were some changes seen on your previous x-rays including a limbus vertebra of L3 which is consistent with a herniated disc. Take your meloxicam as directed daily for the next 7 days then take as needed for pain. Continue using the cyclobenzaprine 10 monos one tablet every 8 hours as needed for severe pain or spasm. Be aware that this medication will cause drowsiness so do not take and drive or operate machinery. Apply a heating pad to the affected area for 15-20 minutes at least 4 times a day to help with the pain and to relax muscles. Follow-up with your primary care provider in 7 days if symptoms are not improving. Seek immediate medical attention in the emergency room if you develop a fever greater than 100.5 F, have severe back pain that is not managed with pain medications, you have difficulty walking, develop numbness, tingling, or weakness of her legs, lose control of her bowel or bladder, or have any worsening of symptoms. - Billing Disposition and Condition Condition: STABLE Disposition: Home
== END 2019-11-14 12:43 | disposition home or self-care (01) ==
LOC: UCEAST 09:10
DX: M54.5 Low back pain (principal); M47.817 Spondylosis without myelopathy or radiculopathy, lumbosacral region; Z88.0 Allergy status to penicillin; W00.0XXA Fall on same level due to ice and snow, initial encounter; Y92.480 Sidewalk as the place of occurrence of the external cause
CPT/HCPCS: 72110; 96372; 99212; G0463; J1885